=== PATIENT | male | born 1965 | race Caucasian/White ===

== ENCOUNTER 2016-10-20 08:34 | Inpatient (IN) | payer MEDICARE ==
[~2016-10-20] VITALS: Ht 152.4 cm; Wt 100.0 kg
[~2016-10-20 08:34] MED LIST: ACET325T45 PO; ASC250 PO; BACTDS PO; BEN25 PO; BICS PO; BISA-57 PO; CEPH-443 PO; COLC0.6T6 PO; LEVE-5 PO; LIDO700A6 TD; LITH300T5 PO; MAGN400O4 PO; METO-407 PO; OLAN7.5T5 PO; SULF1TAB31 PO; VALS160T20 PO
[2016-10-20 08:46] VITALS: Ht 152.4 cm; Wt 100.0 kg
[2016-10-20] MEDS ORDERED: ONDANSETRON 4 MG INJ IV STA (08:48)
[2016-10-20] MEDS ORDERED: SOD CHLORIDE 0.9% 1,000 ML IV STA (08:48)
[2016-10-20] MEDS ORDERED: LEVETIRACETAM IV 500 MG in DEXTROSE 5% 100 ML IVPB ONE (09:00)
[2016-10-20 09:19] LABS: BASOPHIL # 0.1 10^3/ul (0.0-0.1); BASOPHILS % 0.4 % (0.0-2.0); EOSINOPHILS # 0.4 10^3/ul (0.0-0.5); EOSINOPHILS % 3.2 % (0.0-7.0); HEMATOCRIT 44.3 % (42.0-52.0); LYMPHOCYTES # 1.2 10^3/ul (0.8-2.9); LYMPHOCYTES % 8.8 % (15.0-51.0); MEAN CORPUSCULAR HEMOGLOBIN 29.5 pg (29.0-33.0); MEAN CORPUSCULAR HGB CONC 33.8 g/dl (32.0-37.0); MEAN CORPUSCULAR VOLUME 87.4 fl (82.0-101.0); MONOCYTE # 0.4 10^3/ul (0.3-0.9); MONOCYTES % 3.2 % (0.0-11.0); NEUTROPHIL # 11.6 10^3/ul (1.6-7.5); NEUTROPHILS % 84.4 % (39.0-77.0); PLATELET COUNT 241 10^3/UL (140-440); RED BLOOD COUNT 5.07 10^6/ul (4.70-6.10); RED CELL DISTRIBUTION WIDTH 14.2 % (11.5-14.5); UNCORRECTED WBC 13.8 10^3/ul (4.8-10.8); WHITE BLOOD COUNT 13.8 10^3/ul (4.8-10.8)
[2016-10-20 09:31] LABS: ALBUMIN 4.4 g/dl (3.3-4.9)
[2016-10-20 09:32] LABS: CHLORIDE 107 mmol/L (97-110); POTASSIUM 4.7 mmol/L (3.5-5.1); SODIUM 145 mmol/L (135-144)
[2016-10-20 09:34] LABS: ANION GAP 21 (8-16); BILIRUBIN,INDIRECT 0.8 mg/dl (0-1.1); BILIRUBIN,TOTAL 0.8 mg/dl (0.2-1.3); CARBON DIOXIDE 22 mmol/L (21-31); CREATININE 1.53 mg/dl (0.61-1.24)
[2016-10-20 09:35] LABS: ALANINE AMINOTRANSFERASE 33 IU/L (13-69); ALBUMIN/GLOBULIN RATIO 1.46; ALKALINE PHOSPHATASE 81 IU/L (42-121); ASPARTATE AMINO TRANSFERASE 32 IU/L (15-46); BLOOD UREA NITROGEN 21 mg/dl (7-20); CALCIUM 9.8 mg/dl (8.4-10.2); CONDITION 1; GLUCOSE 107 mg/dl (70-220); TOTAL PROTEIN 7.4 g/dl (6.1-8.1)
--- NOTE | 2016-10-20 09:38 | RADRPT ---
PROCEDURE: XR Chest. CLINICAL INDICATION: Chest pain TECHNIQUE: Chest AP portable. COMPARISON: 08/23/2014 FINDINGS: Right-sided PAYROLL ACCOUNTANT shunt. The mediastinal structures are unremarkable. The heart is normal in size and configuration. The pu lmonary vascularity is normal. There are low lung volumes. There is mild bibasilar subsegmental at electasis. The pleural spaces are unremarkable. The axial skeleton is unremarkable. IMPRESSION: Low lung volumes Mild bibasilar subsegmental atelectasis RPTAT: HGDB .Izaiah Judd MD, MD Date Time Electronically viewed and signed by .Izaiah Judd MD, MD on 10/20/2016 09:38 .B/
[2016-10-20 09:50] LABS: TROPONIN-I < 0.012 ng/ml (0.00-0.12)
--- NOTE | 2016-10-20 10:00 | RADRPT ---
PROCEDURE: CT Brain without contrast. CLINICAL INDICATION: Altered mental status TECHNIQUE: Routine CT scan of the brain was performed on a high resolution multi detector scanner without intravenous contrast. One or more of the following dose reduction techniques were used: Auto mated exposure control; Adjustment of the mA and/or kV according to patient size; Use of iterative r econstruction technique. CTDI = 44, 45, 44 mGy. DLP = 720 mGy-cm. COMPARISON: CT angiogram of the intracranial circulation 01/15/2016 FINDINGS: Hemorrhage: No evidence of intracranial hemorrhage. Acute ischemic changes: No evidence of acute ischemic changes. Mass effect/Midline shift: None. Parenchymal volume: Within normal limits for age. Ventricular system: Concordant with parenchymal volume. Ventriculostomy catheter enters via a right frontal approach and terminates within the anterior right frontal horn. Ventricular caliber is uncha nged. Chronic changes: Mild left inferior frontal and insular encephalomalacia associated with left parase llar aneurysm clips. Small right cerebellar chronic infarct is unchanged. Extracranial soft tissues: Mild soft tissue swelling in the left parietal region may be post-traumat ic. Calvarium: No fractures. Postoperative changes from left pterional craniotomy. Paranasal sinuses: Visualized paranasal sinuses are clear. Mastoid air cells: Visualized mastoid air cells are clear. IMPRESSION: No acute intracranial abnormalities. Unchanged appearance of left inferior frontal, left sub insular, and right cerebellar chronic infarc ts / encephalomalacia. Right frontal ventriculostomy catheter with unchanged caliber of the ventricular system. Mild left parietal soft tissue swelling without underlying fractures. RPTAT: AADD .Ruel Kumar MD, MD Date Time Electronically viewed and signed by .Ruel Kumar MD, on 10/20/2016 10:00 .B/
[2016-10-20 10:38] LABS: INR 0.94; PROTIME 12.6 Sec (12.2-14.2)
[2016-10-20 10:43] LABS: ADD UMIC YES; URINE BILIRUBIN (Dip) NEGATIVE (NEGATIVE); URINE BLOOD (Dip) NEGATIVE (NEGATIVE); URINE COLOR LT. YELLOW (YELLOW); URINE GLUCOSE (Dip) NEGATIVE (NEGATIVE); URINE KETONES (Dip) NEGATIVE (NEGATIVE); URINE LEUKOCYTE ESTERASE (Dip) NEGATIVE (NEGATIVE); URINE NITRITE (Dip) NEGATIVE (NEGATIVE); URINE TOTAL PROTEIN (Dip) TRACE (NEGATIVE); URINE UROBILINOGEN (Dip) 0.2 E.U./dL (0.1-1.0)
[2016-10-20 11:06] LABS: URINE RBCS NONE SEEN /HPF (0)
--- NOTE | 2016-10-20 11:15 | ERA ---
ER Documentation Chief Complaint Date/Time DATE: 10/20/16 TIME: 11:09 Chief Complaint BROUGHT IN VIA EMS DUE TO SEIZURE AND FOUND SLEEPING IN FRONT YARD HPI 51-year-old man brought in by EMS after he was found confused laying on a strangers front lawn. EMS thought he may be alcohol intoxicated although he did not endorse this. Patient was confused and had slurred speech but no focal deficits. He denies fevers or chills, no chest pain or shortness of breath. HPI was limited although supplemented by reviewing past medical history and speaking to EMS in the ED. ROS All systems reviewed and are negative except as per history of present illness. Medications Home Meds Active Scripts Diphenhydramine Hcl* (Benadryl*) 25 Mg Cap, 25 MG PO QHS for INSOMNIA for 30 Days, #30 CAP 0 Refills Prov:DAQUAN PERRY PA-C 05/23/16 Bisacodyl* (Dulcolax*) 5 Mg Tabec, 5 MG PO DAILY Y for CONSTIPATION, #30 Prov:FRANCISCO RAMIREZ 11/04/14 Reported Medications Citric Acid/Sodium Citrate* (Bicitra* (PEDIATRIC)) 1 Meq/Ml Soln, 30 ML PO TID for 30 Days, BOTTLE 10/30/14 Olanzapine* (Olanzapine*) 7.5 Mg Tablet, 7.5 MG PO BID, TAB 10/30/14 Acetaminophen* (Acetaminophen*) 325 Mg Tablet, 650 MG PO Q4H Y for PAIN AND OR ELEVATED TEMP, TAB 10/30/14 Magnesium Hydroxide* (Milk Of Magnesia*) 400 Mg/5 Ml Oral.susp, 30 ML PO DAILY, ML 10/30/14 Metoprolol Tartrate* (Lopressor*) 100 Mg Tablet, 100 MG PO BID, TAB 10/30/14 [place] Carbonate* ([place] Carbonate*) 300 Mg Tablet, 300 MG PO BID, TAB 10/30/14 Lidocaine 5%* (Lidoderm 5%*) 5% - Patch Adh..patch, 1 PATCH TD DAILY, PATCH 10/30/14 Levetiracetam* (Keppra*) 500 Mg Tablet, 500 MG PO BID, TAB 10/30/14 Valsartan* (Diovan*) 160 Mg Tablet, 160 MG PO DAILY, TAB 10/30/14 Colchicine* (Colcrys*) 0.6 Mg Tablet, 0.6 MG PO DAILY, TAB 10/30/14 Ascorbic Acid (Vitamin C) 250 Mg Tab, 250 MG PO DAILY, TAB 10/30/14 Discontinued Scripts Cephalexin* (Keflex*) 500 Mg Capsule, 500 MG PO BID for 7 Days, CAP Prov:NADINE DUONG C 07/06/16 Sulfamethoxazole-Trimethoprim* (Bactrim* DS) 800-160 Mg Tab, 1 TAB PO BID for 7 Days, TAB Prov:NADINE DUONG C 07/06/16 Sulfamethoxazole-Trimethoprim (Bactrim DS Tablet) 800-160 Mg Tab, 1 TAB PO DAILY , #7 TAB Prov:ASHLEYFRANCISCO 11/04/14 Allergies Allergies: Coded Allergies: Tigecycline (Verified Allergy, Mild, swelling, 10/30/14) swollen face PMhx/Soc 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 and subarachnoid hemorrhage to the left frontal temporal lobe and subsequent encephalomalacia, seizures, history of stroke and cerebral artery aneurysm clips, recurrent UTI, hypertension History of Surgery: Yes (BRAIN VALVE PLACEMENT ) Anesthesia Reaction: No Hx Neurological Disorder: Yes Hx Respiratory Disorders: Yes (Asthma) Hx Cardiac Disorders: Yes (HTN) Hx Psychiatric Problems: Yes (Schizo, Psychosis) Hx Miscellaneous Medical Probl: No Hx Alcohol Use: Yes Hx Substance Use: No Hx Tobacco Use: No Smoking Status: Never smoker FmHx Family History: No diabetes Physical Exam Vitals Vital Signs Date Time Temp Pulse Resp B/P Pulse Ox O2 Delivery O2 Flow Rate FiO2 10/20/16 11:41 98.5 76 16 154/106 98 Room Air 10/20/16 08:46 98.5 77 16 144/95 95 Physical Exam GENERAL: Well-developed, well-nourished, confused, lethargic, appears postictal HEENT: Moist mucous membranes, pink conjunctiva, no cervical spine tenderness or step-off deformities, no goiter, no jaundice or icterus, extraocular movements intact without pain. No submandibular induration, and no pharyngeal erythema NEURO: Alert and oriented 1, positive slurred speech, cranial nerves II through XII intact bilaterally, pupils equal round reactive to light, no focal deficits or facial asymmetry, sensation intact distally Strength 5/5 in upper and lower extremities bilaterally CARDIAC: Regular rate and rhythm, no murmurs rubs or gallops LUNGS: Clear bilaterally no wheezing crackles or stridor ABDOMEN: Soft nontender, no guarding, no rigidity, no rebound, no psoas sign no obturator sign. Normoactive bowel sounds SKIN: Warm and dry to touch, no abrasions, contusions, or hematomas, no lacerations, no ecchymosis, no target lesions, and without ulcers EXTREMITIES: No clubbing cyanosis or edema, calves are bilaterally symmetrical, no Homans sign, no popliteal cord sign. Distal pulses equal and bilateral PSYCH: Normal affect without agitation or irritability Result Diagram: 10/20/16 0900 10/20/16 0900 Results 24 hrs Laboratory Tests Test 10/20/16 09:00 10/20/16 10:00 Alanine Aminotransferase (ALT/SGPT) 33IU/L Albumin 4.4g/dl Albumin/Globulin Ratio 1.46 Alkaline Phosphatase 81IU/L Anion Gap 21 Aspartate Amino Transf (AST/SGOT) 32IU/L Basophils # 0.110^3/ul Basophils % 0.4% Blood Morphology Comment Blood Urea Nitrogen 21mg/dl Calcium Level 9.8mg/dl Carbon Dioxide Level 22mmol/L Chloride Level 107mmol/L Creatinine 1.53mg/dl Direct Bilirubin 0.00mg/dl Eosinophils # 0.410^3/ul Eosinophils % 3.2% Globulin 3.00g/dl Glucose Level 107mg/dl Hematocrit 44.3% Hemoglobin 15.0g/dl INR International Normalized Ratio 0.94 Indirect Bilirubin 0.8mg/dl Lipase 49U/L Lymphocytes # 1.210^3/ul Lymphocytes % 8.8% Mean Corpuscular Hemoglobin 29.5pg Mean Corpuscular Hemoglobin Concent 33.8g/dl Mean Corpuscular Volume 87.4fl Mean Platelet Volume 11.0fl Monocytes # 0.410^3/ul Monocytes % 3.2% Neutrophils # 11.610^3/ul Neutrophils % 84.4% Nucleated Red Blood Cells # 0.010^3/ul Nucleated Red Blood Cells % 0.0/100WBC Platelet Count 83601^3/UL Potassium Level 4.7mmol/L Prothrombin Time 12.6Sec Prothrombin Time Ratio 1.0 Red Blood Count 5.0710^6/ul Red Cell Distribution Width 14.2% Sodium Level 145mmol/L Total Bilirubin 0.8mg/dl Total Protein 7.4g/dl Troponin I < 0.012ng/ml White Blood Count 13.810^3/ul Urine Bilirubin NEGATIVE Urine Clarity CLEAR Urine Color LT. YELLOW Urine Glucose NEGATIVE% Urine Hemoglobin NEGATIVE Urine Ketones NEGATIVE Urine Leukocyte Esterase NEGATIVE Urine Microscopic RBC NONE SEEN/HPF Urine Microscopic WBC 0-2/HPF Urine Nitrite NEGATIVE Urine Specific [place] 1.010 Urine Total Protein TRACE Urine Urobilinogen 0.2 E.U./dL Urine pH 5.5 Current Medications Medications (Trade) Dose Ordered Sig/Trena Route PRN Reason Start Time Stop Time Status Last Admin Dose Admin Sodium Chloride (NS) 1,000 ml @ 1,000 mls/hr Q1H STAT IV 10/20/16 08:48 10/20/16 09:47 DC 10/20/16 09:13 Ondansetron HCl 4 mg 4 mg ONCE STAT IV 10/20/16 08:48 10/20/16 08:52 DC Levetiracetam/ Dextrose (Keppra Iv/D5W) 105 ml @ 420 mls/hr ONCE ONCE IVPB 10/20/16 09:00 10/20/16 09:14 DC 10/20/16 09:24 Procedures/MDM IV line was established patient was placed on cardiac exercise physiologist rhythm strip revealed a sinus rhythm at about 80 bpm with upright P and T waves. Patient was afebrile. Blood sugar was checked and was normal. EKG performed, read by me: 76 bpm, normal sinus rhythm, normal axis, no acute ST segment changes, narrow QRS complex, with good R-wave progression in precordial leads. CT scan of the brain was performed that was negative for acute bleed mass or shift. There is chronic changes noted consistent with his history. GREASE MONKEY shunt appears patent. One AP view of the chest performed, read by me reveals no acute infiltrates, normal mediastinum, sharp costophrenic and cardiac borders, no air under the diaphragm. Otherwise unremarkable chest x-ray. CBC reveals a leukocytosis of 14, electrolytes revealed dehydration with a BUN/ creatinine of 21/1.5, liver function tests were normal, troponin was negative. Urine analysis was negative for infection. I reviewed patient's past medical history and it seems he was at one time prescribed Keppra for seizures although he denies using this medication for a few weeks at least. His mental status has slowly improved while here in the emergency department, presentation he was only alert to name although now he was able to provide more of a history and suspects he had a tonic-clonic seizure. Patient remains postictal and will be admitted to [facility] for continued medical management and possible neurology consultation. I administered 1 L normal saline intravenously, Zofran 4 mg IV, and Keppra 500 mg IV. Departure Diagnosis: Primary Impression: Acute encephalopathy Additional Impressions: Postictal state GREASE MONKEY (ventriculoperitoneal) shunt status Dehydration Condition: Fair ALMITA ORTIZ MD Oct 20, 2016 11:15
[2016-10-20] MEDS ORDERED: LORAZEPAM 2 MG INJ IM ONE (15:00)
[2016-10-20] MEDS ORDERED: LORAZEPAM 2 MG INJ IV ONE (15:30)
[2016-10-20] MEDS ORDERED: ACETAMINOPHEN 325 MG TAB PO PRN (16:00)
[2016-10-20] MEDS ORDERED: NACL 0.9% 3 ML SYG IV SCH (16:00)
[2016-10-20] MEDS ORDERED: DOCUSATE SODIUM 100 MG CAP PO PRN (16:00)
[2016-10-20] MEDS ORDERED: BISACODYL (EC) 5 MG TAB PO PRN (16:30)
[2016-10-20] MEDS ORDERED: [UNRECOGNIZED DRUG - REMARK] XX SCH (17:00)
[2016-10-20 17:35] LABS: CREATINE KINASE 949 IU/L (23-200)
[2016-10-20 17:48] LABS: CK-MB 9.21 ng/ml (0.0-2.4)
[2016-10-20 17:56] LABS: TROPONIN-I < 0.012 ng/ml (0.00-0.12)
--- NOTE | 2016-10-20 17:59 | HP ---
DATE OF ADMISSION: 10/20/2016 LENS COATING TECHNICIAN: Neurology. NOTATION: Information was obtained from the ER doctor and EMS. Patient is not able to provide me w ith any information secondary to altered mental status. HISTORY OF PRESENT ILLNESS: This is a 51-year-old gentleman with past medical history of seizure di sorder, gout, mood disorder, questionable schizophrenia, hypertension, alcohol abuse, who was found confused, lying on a stranger's front lawn. EMS thought he may be alcohol intoxicated, although he did not endorse this. Patient was confused and had slurred speech, but no focal deficit. Patient e asily arousable, although he falls right back to sleep. He denies having any chest pain, shortness of breath, although the HPI and review of systems is limited secondary to patient's altered mental s tatus and patient not being able to answer since he continues to fall asleep during the documentatio n and HPI. PAST MEDICAL HISTORY: As above per HPI. PAST SURGICAL HISTORY: As above per HPI. Upon arrival to emergency room, patient was treated with lorazepam, Keppra, normal saline, and Zofra n. At this time, the patient is easily arousable, , although he continues to fall back asleep. He was found to be mildly agitated and possibly going through withdrawal. Therefore, he was placed on b ilateral upper extremity restraints and seizure precautions. MEDICATIONS: 1. Tylenol. 2. Vitamin C. 3. Dulcolax. 4. Citric acid and sodium citrate. 5. Colchicine. 6. Benadryl. 7. Keppra. 8. Lidocaine patch. 9. [place]. 10. Magnesium hydroxide. 11. Lopressor. 12. Olanzapine. 13. Diovan. ALLERGIES: TIGECYCLINE. SOCIAL HISTORY: History of alcoholism. According to chart, he has never smoked. Drug use is unkno wn. REVIEW OF SYSTEMS: As above per HPI. Otherwise, 12 review of systems has not been able to be obtai sisi. PHYSICAL EXAMINATION: VITAL SIGNS: Temperature 98.5, pulse 68, respirations 16, blood pressure 178/106, oxygen saturation 100% in room air. GENERAL APPEARANCE: Patient is lying in bed comfortably, although he is arousable. Patient is able to follow simple commands only and then falls right back to sleep. EYES AND ENT: Conjunctivae and lids are normal. Pupils are normal. Extraocular normal. Hearing g rossly normal. Pupils are normal. Oral mucosa dry. NECK: Supple. Trachea is midline. No lymphadenopathy. RESPIRATORY: Effort is normal. Clear to auscultate bilaterally. CARDIOVASCULAR: Normal S1, S2. Regular rhythm and rate. No murmur, no bruits, no edema. Peripher al pulses, radial pulses palpable. Cap refill is normal. CHEST: Normal expansion of thorax during inspiration. GASTROINTESTINAL: Abdomen is soft, nontender, not distended. Bowel sounds present. No guarding, n o rebound. GENITOURINARY: Deferred. MUSCULOSKELETAL: Upper and lower extremities within normal limits. Full range of motion. NEUROLOGIC: Not obtainable at this time, although he is easily arousable and awake by sternal rub. LABORATORY WORK AND IMAGING: WBC 13.8, hemoglobin 15, hematocrit 44.3, platelets 241. Sodium 145, potassium 4.7, chloride 107, bicarbonate 22, BUN 21, creatinine 1.53, glucose 107, calcium 9.8. LFT s all within normal limits. ASSESSMENT AND PLAN: 1. Altered mental status. This is likely postictal versus alcohol intoxication. We will follow up alcohol level, place the patient on banana bag, Ativan, and Librium, and treat accordingly. 2. History of seizure disorder. Continue Keppra. Neurology has been consulted. We will follow up their recommendation. 3. History of mood disorder. Continue home medication. 4. Essential hypertension. Restart patient's home medication. 5. Acute renal insufficiency, likely secondary to dehydration. The patient has been started on IV fluid. Follow renal panel in a.m. 6. Leukocytosis, likely reactive, although at this time, we will start the patient on prophylactic Rocephin. Follow CBC in a.m. 7. For deep vein thrombosis prophylaxis, on sequential compression devices. 8. For gastrointestinal prophylaxis, the patient has been started on Pepcid. 9. We will continue to monitor patient closely. Further recommendations, management, and treatment as per clinical course. Dictated By: MILE SARAH/DONN Conf#: [id number] DID#: [id number]
[2016-10-20] MEDS: CEFTRIAXONE 1 GM/50 ML (PMX) 50 ML IVPB SCH (19:13)
[2016-10-20 21:01] VITALS: TEMP 98.7
[2016-10-20] MEDS: FAMOTIDINE 20 MG TAB PO SCH (21:55)
[2016-10-20] MEDS: DIPHENHYDRAMINE 25 MG CAP PO SCH (21:55)
[2016-10-20] MEDS: CITRIC ACID/NA CITRATE 30 ML CUP PO SCH (21:55)
[2016-10-20] MEDS: METOPROLOL 50 MG TAB PO SCH (21:56)
[2016-10-20] MEDS: LORAZEPAM 2 MG INJ IV PRN (22:04)
[2016-10-20 22:09] VITALS: BP 152/93; PULSE 72; RESP 18
[2016-10-20 23:42] LABS: CREATINE KINASE 855 IU/L (23-200)
[2016-10-20] MEDS: LEVETIRACETAM IV 1,000 MG in SOD CHLORIDE 0.9% 100 ML IVPB SCH (23:45)
[2016-10-20] MEDS: 1/2 NS + KCL 20 MEQ 1,000 ML IV SCH (23:46)
[2016-10-20] MEDS: LITHIUM CARBONATE 300 MG CAP PO SCH (23:46)
[2016-10-20] MEDS: OLANZAPINE 2.5 MG TAB PO SCH (23:46)
[2016-10-20 23:59] LABS: CK-MB 7.64 ng/ml (0.0-2.4); TROPONIN-I < 0.012 ng/ml (0.00-0.12)
[2016-10-21] MEDS: LORAZEPAM 2 MG INJ IV PRN ×3 (03:26→18:31)
[2016-10-21] MEDS: 1/2 NS + KCL 20 MEQ 1,000 ML IV SCH ×2 (06:22→15:53)
[2016-10-21 07:04] LABS: BASOPHIL # 0.1 10^3/ul (0.0-0.1); BASOPHILS % 0.6 % (0.0-2.0); EOSINOPHILS % 10.8 % (0.0-7.0); HEMATOCRIT 42.5 % (42.0-52.0); HEMOGLOBIN 14.1 g/dl (14.0-18.0); LYMPHOCYTES # 1.8 10^3/ul (0.8-2.9); LYMPHOCYTES % 19.3 % (15.0-51.0); MEAN CORPUSCULAR HEMOGLOBIN 29.1 pg (29.0-33.0); MEAN CORPUSCULAR HGB CONC 33.3 g/dl (32.0-37.0); MEAN CORPUSCULAR VOLUME 87.4 fl (82.0-101.0); MONOCYTE # 0.6 10^3/ul (0.3-0.9); MONOCYTES % 6.4 % (0.0-11.0); NEUTROPHIL # 5.8 10^3/ul (1.6-7.5); NEUTROPHILS % 62.9 % (39.0-77.0); PLATELET COUNT 220 10^3/UL (140-440); RED BLOOD COUNT 4.86 10^6/ul (4.70-6.10); RED CELL DISTRIBUTION WIDTH 14.5 % (11.5-14.5); UNCORRECTED WBC 9.3 10^3/ul (4.8-10.8); WHITE BLOOD COUNT 9.3 10^3/ul (4.8-10.8)
[2016-10-21 07:06] LABS: ALBUMIN 4.2 g/dl (3.3-4.9)
[2016-10-21 07:08] LABS: CREATININE 1.16 mg/dl (0.61-1.24)
[2016-10-21 07:09] LABS: ALBUMIN/GLOBULIN RATIO 1.68; BILIRUBIN,INDIRECT 0.7 mg/dl (0-1.1); BILIRUBIN,TOTAL 0.7 mg/dl (0.2-1.3); CALCIUM 9.5 mg/dl (8.4-10.2); TOTAL PROTEIN 6.7 g/dl (6.1-8.1)
[2016-10-21 07:10] LABS: MAGNESIUM 1.8 mg/dl (1.7-2.5)
[2016-10-21 07:14] LABS: CONDITION 1
[2016-10-21 07:40] LABS: THYROID STIMULATING HORMONE 2.99 MIU/L (0.465-4.680)
[2016-10-21 08:02] VITALS: BP 144/101; RESP 20
[2016-10-21] MEDS: COLCHICINE 0.6 MG TAB PO SCH (08:45)
[2016-10-21] MEDS: CITRIC ACID/NA CITRATE 30 ML CUP PO SCH ×3 (08:45→20:01)
[2016-10-21] MEDS: ASCORBIC ACID 250 MG TAB PO SCH (08:46)
[2016-10-21] MEDS: VALSARTAN 160 MG TAB PO SCH (08:46)
[2016-10-21] MEDS: FAMOTIDINE 20 MG TAB PO SCH ×2 (08:46→20:02)
[2016-10-21] MEDS: METOPROLOL 50 MG TAB PO SCH ×2 (08:46→22:18)
[2016-10-21] MEDS: OLANZAPINE 2.5 MG TAB PO SCH ×2 (08:46→20:02)
[2016-10-21] MEDS: LITHIUM CARBONATE 300 MG CAP PO SCH ×2 (08:47→20:01)
[2016-10-21 08:52] VITALS: BP 158/97; PULSE 66
[2016-10-21] MEDS: LIDOCAINE 5% PATCH TD SCH (08:52)
[2016-10-21] MEDS: LEVETIRACETAM IV 1,000 MG in SOD CHLORIDE 0.9% 100 ML IVPB SCH ×2 (09:17→22:17)
[2016-10-21] MEDS: MULTIVITAMINS 10 ML, THIAMINE 100 MG, FOLIC ACID 1 MG in SOD CHLORIDE 0.9% 1,000 ML IVPB SCH (09:53)
--- NOTE | 2016-10-21 11:55 | PN ---
Date/Time of Note Date/Time of Note DATE: 10/21/16 TIME: 11:51 Assessment/Plan VTE Prophylaxis VTE Prophylaxis Intervention: SCD's Lines/Catheters IV [facility]ter [facility]from [facility] [place] Lock Urinary Cath still in place: No Assessment/Plan Chief Complaint/Hosp Course ASSESSMENT AND PLAN: 1. Altered mental status. Improving , this was likely postictal versus alcohol intoxication. Continue banana bag, Ativan, and Librium, 2. History of seizure disorder. Continue Keppra. Neurology has been consulted. We will follow up their recommendation. 3. History of mood disorder. Continue home medication. 4. Essential hypertension. Continue medical management 5. Acute renal insufficiency, improved IV fluid. Follow renal panel in a.m. 6. Leukocytosis, likely reactive, Follow CBC in a.m. 7. For deep vein thrombosis prophylaxis, on sequential compression devices. 8. For gastrointestinal prophylaxis, the patient has been started on Pepcid. We will continue to monitor patient closely. Further recommendations, management, and treatment as per clinical course. Problems: Subjective 24 Hr Interval Summary Free Text/Dictation Patient denies of any chest pain or shortness of breath He is more awake and alert and able to follow simple command Exam/Review of Systems Vital Signs Vitals Vital Signs Date Time Temp Pulse Resp B/P Pulse Ox O2 Delivery O2 Flow Rate FiO2 10/21/16 08:52 66 158/97 10/21/16 08:02 97.6 20 99 10/20/16 21:01 Room Air Intake and Output 10/20/16 10/20/16 10/21/16 15:00 23:00 07:00 Intake Total 50 ml 1110 ml Balance 50 ml 1110 ml Exam General: The patient is well-developed, Not in acute distress. HEENT: Atraumatic, normocephalic. The pupils are equal and round . Neck: Supple with full range of motion. Chest: Normal expansion of the thorax during inspiration Lungs: Clear to auscultation bilaterally Heart: Normal S1-S2, Regular rhythm and rate. Abdomen: Soft , nontender, nondistended , bowel sounds are present. Extremities: Normal to inspection, no edema no cyanosis Neurologic: ,The patient is awake, alert and oriented to self. Results Result Diagram: 10/21/16 0530 10/21/16 0530 Results 24 hrs Laboratory Tests Test 10/20/16 17:00 10/20/16 23:00 10/21/16 05:30 Creatine Kinase 949 H 855 H Creatine Kinase Index 1.0 0.9 Creatinine Kinase MB (Mass) 9.21 H 7.64 H Ethyl Alcohol Level < 10.0 Troponin I < 0.012 < 0.012 Alanine Aminotransferase (ALT/SGPT) 33 Albumin 4.2 Albumin/Globulin Ratio 1.68 Alkaline Phosphatase 82 Anion Gap 19 H Aspartate Amino Transf (AST/SGOT) 31 Basophils # 0.1 Basophils % 0.6 Blood Morphology Comment Blood Urea Nitrogen 17 Calcium Level 9.5 Carbon Dioxide Level 23 Chloride Level 108 Creatinine 1.16 Direct Bilirubin 0.00 Eosinophils # 1.0 H Eosinophils % 10.8 H Globulin 2.50 Glucose Level 78 Hematocrit 42.5 Hemoglobin 14.1 Indirect Bilirubin 0.7 Lymphocytes # 1.8 Lymphocytes % 19.3 Magnesium Level 1.8 Mean Corpuscular Hemoglobin 29.1 Mean Corpuscular Hemoglobin Concent 33.3 Mean Corpuscular Volume 87.4 Mean Platelet Volume 11.0 H Monocytes # 0.6 Monocytes % 6.4 Neutrophils # 5.8 Neutrophils % 62.9 Nucleated Red Blood Cells # 0.0 Nucleated Red Blood Cells % 0.0 Platelet Count 220 Potassium Level 5.0 Red Blood Count 4.86 Red Cell Distribution Width 14.5 Sodium Level 145 H Thyroid Stimulating Hormone (TSH) 2.990 Total Bilirubin 0.7 Total Protein 6.7 White Blood Count 9.3 # Medications Medications Current Medications Multivitamins 10 ml/Thiamine HCl 100 mg/Folic Acid 1 mg/Sodium Chloride 1,011.2 ml @ 100 mls/ hr DAILY@09 IVPB Last administered on 10/21/16 09:53; Admin Dose 100 MLS/HR; Start 10/21/16 at 09:00 Potassium Chloride/Sodium Chloride (1/2 NS + KCl 20 Meq) 1,000 ml @ 100 mls/hr Q10H IV Last administered on 10/21/16 06:22; Admin Dose 100 MLS/HR; Start at 20:00 Lorazepam (Ativan) 0.5 mg Q4H PRN IV ANXIETY Last administered on 10/21/16 03: 26; Admin Dose 0.5 MG; Start 10/20/16 at 16:00 Acetaminophen (Tylenol Tab) 650 mg Q6H PRN PO PAIN LEVEL 1-3 OR FEVER; Start at 16:00 Docusate Sodium (Colace) 100 mg Q12H PRN PO CONSTIPATION; Start 10/20/16 at 16: 00 Famotidine (Pepcid) 20 mg Q12 PO Last administered on 10/21/16 08:46; Admin Dose 20 MG; Start 10/20/16 at 21:00 Ascorbic Acid (Vitamin C) 250 mg DAILY PO Last administered on 10/21/16 08:46 ; Admin Dose 250 MG; Start 10/21/16 at 09:00 Bisacodyl (Dulcolax) 5 mg DAILY PRN PO CONSTIPATION; Start 10/20/16 at 16:30 Citric Acid/ Sodium Citrate (Bicitra) 30 ml TID PO Last administered on 08:45; Admin Dose 30 ML; Start 10/20/16 at 21:00 Colchicine (Colchicine) 0.6 mg DAILY PO Last administered on 10/21/16 08:45; Admin Dose 0.6 MG; Start 10/21/16 at 09:00 Diphenhydramine HCl (Benadryl) 25 mg QHS PO Last administered on 10/20/16 21: 55; Admin Dose 25 MG; Start 10/20/16 at 21:00 Lidocaine (Lidoderm) 1 patch DAILY TD Last administered on 10/21/16 08:52; Admin Dose 1 PATCH; Start 10/21/16 at 09:00 [place] Carbonate (Z[place] Carbonate) 300 mg BID PO Last administered on 08:47; Admin Dose 300 MG; Start 10/20/16 at 21:00 Metoprolol Tartrate (Lopressor) 50 mg BID PO Last administered on 10/21/16 08: 46; Admin Dose 50 MG; Start 10/20/16 at 21:00 Valsartan (Diovan) 160 mg DAILY PO Last administered on 10/21/16 08:46; Admin Dose 160 MG; Start 10/21/16 at 09:00 Olanzapine (Zyprexa) 7.5 mg BID PO Last administered on 10/21/16 08:46; Admin Dose 7.5 MG; Start 10/20/16 at 21:00 Miscellaneous Information 1 ea NOTE XX ; Start 10/20/16 at 17:00 Chlordiazepoxide 50 mg 50 mg TID PO ; Start 10/21/16 at 21:00 Levetiracetam 1000 mg/Sodium Chloride 110 ml @ 440 mls/hr Q12 IVPB Last administered on 10/21/16 09:17; Admin Dose 440 MLS/HR; Start 10/20/16 at 21:00 Ceftriaxone Sodium (Rocephin) 50 ml @ 100 mls/hr Q24H IVPB Last administered on 10/20/16 19:13; Admin Dose 100 MLS/HR; Start 10/20/16 at 17:30; Stop at 17:29 MILE BELLO MD Oct 21, 2016 11:55
[2016-10-21] MEDS ORDERED: LORAZEPAM 2 MG INJ IV ONE (13:30)
--- NOTE | 2016-10-21 16:31 | CONS ---
Date/Time of Note Date/Time of Note DATE: 10/21/16 TIME: 16:24 Assessment/Plan Assessment/Plan Chief Complaint/Hosp Course 51 year old M hx of prior old strokes, alcohol abuse with seizures presenting with confusion slurred speech in setting of intoxication admitted for further management. -continue on home dose Keppra and psych meds -Librium taper, prn ativan with CIWA protocol seizure precautions -continue current management -SW would benefit from admission to rehab Problems: Consultation Date/Type/Reason Admit Date/Time Oct 21, 2016 at 12:29 Date of Consultation: Oct 21, 2016 Type of Consultation: Neurology Reason for Consultation alcohol abuse seizures Referring Provider: MILE BELLO MD Hx of Present Illness 51 year old male with history of seizure disorder, gout, htn, alcohol abuse found confused lying on strangers lawn, on admission intoxicated with confusion and slurred speech. Head CT shows left inferior frontal, subinsular right cerebellar chronic infarcts, prior right frontal catheter placement. He reportedly has hx of seizures, currently on Keppra 1000 mg q12h. Librium initiated 50 mg TID with prn ativan and banana bag. He remains confused and agitated. Social History Smoking Status: Unknown if ever smoked Exam/Review of Systems Vital Signs Vitals Vital Signs Date Time Temp Pulse Resp B/P Pulse Ox O2 Delivery O2 Flow Rate FiO2 10/21/16 08:52 66 158/97 10/21/16 08:02 97.6 20 99 10/20/16 21:01 Room Air Intake and Output 10/20/16 10/20/16 10/21/16 15:00 23:00 07:00 Intake Total 50 ml 1110 ml Balance 50 ml 1110 ml Exam awake and alert disheveled appearance oriented to self and hospital not to date poor insight and judgement agitated attempting to climb out of bed CN: YAO no nystagmus no facial asymmetry tongue midline Motor intact strength throughout arms and legs Tremor in bilateral UE from withdrawal sx Coordination no ataxia Sensory intact throughout Results Result Diagram: 10/21/16 0530 10/21/16 0530 Results 24 hrs Laboratory Tests Test 10/20/16 17:00 10/20/16 23:00 10/21/16 05:30 Creatine Kinase 949 H 855 H Creatine Kinase Index 1.0 0.9 Creatinine Kinase MB (Mass) 9.21 H 7.64 H Ethyl Alcohol Level < 10.0 Troponin I < 0.012 < 0.012 Alanine Aminotransferase (ALT/SGPT) 33 Albumin 4.2 Albumin/Globulin Ratio 1.68 Alkaline Phosphatase 82 Anion Gap 19 H Aspartate Amino Transf (AST/SGOT) 31 Basophils # 0.1 Basophils % 0.6 Blood Morphology Comment Blood Urea Nitrogen 17 Calcium Level 9.5 Carbon Dioxide Level 23 Chloride Level 108 Creatinine 1.16 Direct Bilirubin 0.00 Eosinophils # 1.0 H Eosinophils % 10.8 H Globulin 2.50 Glucose Level 78 Hematocrit 42.5 Hemoglobin 14.1 Indirect Bilirubin 0.7 Lymphocytes # 1.8 Lymphocytes % 19.3 Magnesium Level 1.8 Mean Corpuscular Hemoglobin 29.1 Mean Corpuscular Hemoglobin Concent 33.3 Mean Corpuscular Volume 87.4 Mean Platelet Volume 11.0 H Monocytes # 0.6 Monocytes % 6.4 Neutrophils # 5.8 Neutrophils % 62.9 Nucleated Red Blood Cells # 0.0 Nucleated Red Blood Cells % 0.0 Platelet Count 220 Potassium Level 5.0 Red Blood Count 4.86 Red Cell Distribution Width 14.5 Sodium Level 145 H Thyroid Stimulating Hormone (TSH) 2.990 Total Bilirubin 0.7 Total Protein 6.7 White Blood Count 9.3 # Medications Medications Current Medications Multivitamins 10 ml/Thiamine HCl 100 mg/Folic Acid 1 mg/Sodium Chloride 1,011.2 ml @ 100 mls/ hr DAILY@09 IVPB Last administered on 10/21/16 09:53; Admin Dose 100 MLS/HR; Start 10/21/16 at 09:00 Potassium Chloride/Sodium Chloride (1/2 NS + KCl 20 Meq) 1,000 ml @ 100 mls/hr Q10H IV Last administered on 10/21/16 06:22; Admin Dose 100 MLS/HR; Start at 20:00 Acetaminophen (Tylenol Tab) 650 mg Q6H PRN PO PAIN LEVEL 1-3 OR FEVER; Start at 16:00 Docusate Sodium (Colace) 100 mg Q12H PRN PO CONSTIPATION; Start 10/20/16 at 16: 00 Famotidine (Pepcid) 20 mg Q12 PO Last administered on 10/21/16 08:46; Admin Dose 20 MG; Start 10/20/16 at 21:00 Ascorbic Acid (Vitamin C) 250 mg DAILY PO Last administered on 10/21/16 08:46 ; Admin Dose 250 MG; Start 10/21/16 at 09:00 Bisacodyl (Dulcolax) 5 mg DAILY PRN PO CONSTIPATION; Start 10/20/16 at 16:30 Citric Acid/ Sodium Citrate (Bicitra) 30 ml TID PO Last administered on 14:04; Admin Dose 30 ML; Start 10/20/16 at 21:00 Colchicine (Colchicine) 0.6 mg DAILY PO Last administered on 10/21/16 08:45; Admin Dose 0.6 MG; Start 10/21/16 at 09:00 Diphenhydramine HCl (Benadryl) 25 mg QHS PO Last administered on 10/20/16 21: 55; Admin Dose 25 MG; Start 10/20/16 at 21:00 Lidocaine (Lidoderm) 1 patch DAILY TD Last administered on 10/21/16 08:52; Admin Dose 1 PATCH; Start 10/21/16 at 09:00 [place] Carbonate ([place] Carbonate) 300 mg BID PO Last administered on 08:47; Admin Dose 300 MG; Start 10/20/16 at 21:00 Metoprolol Tartrate (Lopressor) 50 mg BID PO Last administered on 10/21/16 08: 46; Admin Dose 50 MG; Start 10/20/16 at 21:00 Valsartan (Diovan) 160 mg DAILY PO Last administered on 10/21/16 08:46; Admin Dose 160 MG; Start 10/21/16 at 09:00 Olanzapine (Zyprexa) 7.5 mg BID PO Last administered on 10/21/16 08:46; Admin Dose 7.5 MG; Start 10/20/16 at 21:00 Miscellaneous Information 1 ea NOTE XX ; Start 10/20/16 at 17:00 Chlordiazepoxide 50 mg 50 mg TID PO ; Start 10/21/16 at 21:00 Levetiracetam 1000 mg/Sodium Chloride 110 ml @ 440 mls/hr Q12 IVPB Last administered on 10/21/16 09:17; Admin Dose 440 MLS/HR; Start 10/20/16 at 21:00 Ceftriaxone Sodium (Rocephin) 50 ml @ 100 mls/hr Q24H IVPB Last administered on 10/20/16t 19:13; Admin Dose 100 MLS/HR; Start 10/20/16 at 17:30; Stop at 17:29 Lorazepam (Ativan) 1 mg Q4H PRN IV ANXIETY; Start 10/21/16 at 13:30 KEERTHI YANEZ MD Oct 21, 2016 16:31
[2016-10-21] MEDS: CEFTRIAXONE 1 GM/50 ML (PMX) 50 ML IVPB SCH (17:24)
[2016-10-21] MEDS: DIPHENHYDRAMINE 25 MG CAP PO SCH (20:02)
[2016-10-21] MEDS: CHLORDIAZEPOXIDE 25 MG CAP PO SCH (22:18)
[2016-10-22] MEDS: 1/2 NS + KCL 20 MEQ 1,000 ML IV SCH ×3 (02:59→22:00)
[2016-10-22 05:57] LABS: BASOPHILS % 0.5 % (0.0-2.0); EOSINOPHILS # 0.9 10^3/ul (0.0-0.5); HEMATOCRIT 40.4 % (42.0-52.0); HEMOGLOBIN 13.7 g/dl (14.0-18.0); LYMPHOCYTES # 1.8 10^3/ul (0.8-2.9); LYMPHOCYTES % 20.9 % (15.0-51.0); MEAN CORPUSCULAR HEMOGLOBIN 29.5 pg (29.0-33.0); MEAN CORPUSCULAR HGB CONC 33.9 g/dl (32.0-37.0); MEAN CORPUSCULAR VOLUME 87.1 fl (82.0-101.0); MEAN PLATELET VOLUME 11.1 fl (7.4-10.4); MONOCYTE # 0.6 10^3/ul (0.3-0.9); NEUTROPHIL # 5.3 10^3/ul (1.6-7.5); NEUTROPHILS % 61.6 % (39.0-77.0); PLATELET COUNT 210 10^3/UL (140-440); RED BLOOD COUNT 4.64 10^6/ul (4.70-6.10); RED CELL DISTRIBUTION WIDTH 14.4 % (11.5-14.5); UNCORRECTED WBC 8.6 10^3/ul (4.8-10.8); WHITE BLOOD COUNT 8.6 10^3/ul (4.8-10.8)
[2016-10-22 06:12] LABS: CREATININE 1.14 mg/dl (0.61-1.24)
[2016-10-22 06:20] LABS: CONDITION 1
[2016-10-22] MEDS: CITRIC ACID/NA CITRATE 30 ML CUP PO SCH ×3 (08:10→21:54)
[2016-10-22] MEDS: LEVETIRACETAM IV 1,000 MG in SOD CHLORIDE 0.9% 100 ML IVPB SCH ×2 (08:10→21:53)
[2016-10-22] MEDS: LIDOCAINE 5% PATCH TD SCH (08:10)
[2016-10-22] MEDS: CHLORDIAZEPOXIDE 25 MG CAP PO SCH ×3 (08:10→21:54)
[2016-10-22] MEDS: COLCHICINE 0.6 MG TAB PO SCH (08:10)
[2016-10-22] MEDS: ASCORBIC ACID 250 MG TAB PO SCH (08:11)
[2016-10-22] MEDS: FAMOTIDINE 20 MG TAB PO SCH ×2 (08:11→21:53)
[2016-10-22] MEDS: LITHIUM CARBONATE 300 MG CAP PO SCH ×2 (08:11→21:54)
[2016-10-22] MEDS: OLANZAPINE 2.5 MG TAB PO SCH ×2 (08:11→21:53)
[2016-10-22] MEDS: METOPROLOL 50 MG TAB PO SCH ×2 (08:16→21:54)
[2016-10-22] MEDS: VALSARTAN 160 MG TAB PO SCH (08:16)
[2016-10-22 08:39] VITALS: BP 174/111; RESP 20
[2016-10-22] MEDS ORDERED: hydrALAzine 20 MG INJ IV PRN (10:00)
[2016-10-22 10:09] VITALS: BP 173/111
[2016-10-22] MEDS: MULTIVITAMINS 10 ML, THIAMINE 100 MG, FOLIC ACID 1 MG in SOD CHLORIDE 0.9% 1,000 ML IVPB SCH (10:33)
[2016-10-22] MEDS ORDERED: AMLODIPINE 10 MG TAB PO ONE (12:00)
[2016-10-22 12:20] VITALS: BP 188/113; PULSE 80
[2016-10-22] MEDS: LORAZEPAM 2 MG INJ IV PRN (13:07)
[2016-10-22 13:12] VITALS: BP 170/103; PULSE 88
[2016-10-22 14:28] VITALS: BP 152/101; PULSE 94
--- NOTE | 2016-10-22 15:52 | PN ---
Date/Time of Note Date/Time of Note DATE: 10/22/16 TIME: 15:49 Assessment/Plan VTE Prophylaxis VTE Prophylaxis Intervention: SCD's Lines/Catheters [facility] Type (from [facility]): Peripheral IV Urinary Cath still in place: No Assessment/Plan Chief Complaint/Hosp Course Assessment and plan 1. Altered mental status. Suspect postictal versus alcohol intoxication. Continue on Librium. Continue with IV hydration. Neurologist following 2. History of seizure. Continue on Keppra 3. History of medical disorder. Continue on lithium 4. Essential hypertension. Continue antihypertensives and adjust as needed 5. Acute kidney injury. Improved at this time. We'll monitor 6. Rhabdomyolysis. Improving at present per continue IV hydration 7. Suspect history of alcohol abuse. toll test worker to follow. Disposition and plan: Still noted to be confused. Discussed with family. toll test worker to follow. May need some type of assisted living. We'll follow-up Discussed plan of care with Dr. Dunbar Problems: Subjective 24 Hr Interval Summary Free Text/Dictation Still noted with some encephalopathy. Not oriented to time and place. Exam/Review of Systems Vital Signs Vitals Vital Signs Date Time Temp Pulse Resp B/P Pulse Ox O2 Delivery O2 Flow Rate FiO2 10/22/16 14:28 94 152/101 10/22/16 08:39 97.6 20 99 10/20/16 21:01 Room Air Intake and Output 10/21/16 10/21/16 10/22/16 14:59 22:59 06:59 Intake Total 1271.2 ml 410 ml Balance 1271.2 ml 410 ml Exam General: No acute signs or symptoms of distress Eyes: pupils equal round, Anicteric sclera Neck: Supple nontender, no JVD Cardiac: S1, S2 auscultated, regular rhythm and rate Pulmonary: No coarse rhonchi or breathing auscultated GI: Abdomen soft nontender nondistended, bowel sounds active Extremities: No edema bilateral lower extremitie Skin: Clean dry and intact Neurologic: confused Results Result Diagram: 10/22/16 0455 10/22/16 0455 Results 24 hrs Laboratory Tests Test 10/22/16 04:55 10/22/16 05:30 Anion Gap 15 Basophils # 0.0 Basophils % 0.5 Blood Morphology Comment Blood Urea Nitrogen 16 Calcium Level 9.0 Carbon Dioxide Level 25 Chloride Level 110 Creatinine 1.14 Eosinophils # 0.9 H Eosinophils % 10.0 H Glucose Level 74 Hematocrit 40.4 L Hemoglobin 13.7 L Lymphocytes # 1.8 Lymphocytes % 20.9 Magnesium Level 2.0 Mean Corpuscular Hemoglobin 29.5 Mean Corpuscular Hemoglobin Concent 33.9 Mean Corpuscular Volume 87.1 Mean Platelet Volume 11.1 H Monocytes # 0.6 Monocytes % 7.0 Neutrophils # 5.3 Neutrophils % 61.6 Nucleated Red Blood Cells # 0.0 Nucleated Red Blood Cells % 0.0 Platelet Count 210 Potassium Level 4.0 Red Blood Count 4.64 L Red Cell Distribution Width 14.4 Sodium Level 146 H White Blood Count 8.6 Creatine Kinase 495 #H Medications Medications Current Medications Multivitamins 10 ml/Thiamine HCl 100 mg/Folic Acid 1 mg/Sodium Chloride 1,011.2 ml @ 100 mls/ hr DAILY@09 IVPB Last administered on 10/22/16 10:33; Admin Dose 100 MLS/HR; Start 10/21/16 at 09:00 Potassium Chloride/Sodium Chloride (/2 NS + KCl 20 Meq) 1,000 ml @ 100 mls/hr Q10H IV Last administered on 10/22/16 02:59; Admin Dose 100 MLS/HR; Start at 20:00 Acetaminophen (Tylenol Tab) 650 mg Q6H PRN PO PAIN LEVEL 1-3 OR FEVER; Start at 16:00 Docusate Sodium (Colace) 100 mg Q12H PRN PO CONSTIPATION; Start 10/20/16 at 16: 00 Famotidine (Pepcid) 20 mg Q12 PO Last administered on 10/22/16 08:11; Admin Dose 20 MG; Start 10/20/16 at 21:00 Ascorbic Acid (Vitamin C) 250 mg DAILY PO Last administered on 10/22/16 08:11 ; Admin Dose 250 MG; Start 10/21/16 at 09:00 Bisacodyl (Dulcolax) 5 mg DAILY PRN PO CONSTIPATION; Start 10/20/16 at 16:30 Citric Acid/ Sodium Citrate (Bicitra) 30 ml TID PO Last administered on 12:16; Admin Dose 30 ML; Start 10/20/16 at 21:00 Colchicine (Colchicine) 0.6 mg DAILY PO Last administered on 10/22/16 08:10; Admin Dose 0.6 MG; Start 10/21/16 at 09:00 Diphenhydramine HCl (Benadryl) 25 mg QHS PO Last administered on 10/21/16 20: 02; Admin Dose 25 MG; Start 10/20/16 at 21:00 Lidocaine (Lidoderm) 1 patch DAILY TD Last administered on 10/22/16 08:10; Admin Dose 1 PATCH; Start 10/21/16 at 09:00 [place] Carbonate ([place] Carbonate) 300 mg BID PO Last administered on 08:11; Admin Dose 300 MG; Start 10/20/16 at 21:00 Metoprolol Tartrate (Lopressor) 50 mg BID PO Last administered on 10/22/16 08: 16; Admin Dose 50 MG; Start 10/20/16 at 21:00 Valsartan (Diovan) 160 mg DAILY PO Last administered on 10/22/16 08:16; Admin Dose 160 MG; Start 10/21/16 at 09:00 Olanzapine (Zyprexa) 7.5 mg BID PO Last administered on 10/22/16 08:11; Admin Dose 7.5 MG; Start 10/20/16 at 21:00 Miscellaneous Information 1 ea NOTE XX ; Start 10/20/16 at 17:00 Chlordiazepoxide 50 mg 50 mg TID PO Last administered on 10/22/16 12:17; Admin Dose 50 MG; Start 10/21/16 at 21:00 Levetiracetam 1000 mg/Sodium Chloride 110 ml @ 440 mls/hr Q12 IVPB Last administered on 10/22/16 08:10; Admin Dose 440 MLS/HR; Start 10/20/16 at 21:00 Ceftriaxone Sodium (Rocephin) 50 ml @ 100 mls/hr Q24H IVPB Last administered on 10/21/16 17:24; Admin Dose 100 MLS/HR; Start 10/20/16 at 17:30; Stop at 17:29 Lorazepam (Ativan) 1 mg Q4H PRN IV ANXIETY Last administered on 10/22/16 13:07 ; Admin Dose 1 MG; Start 10/21/16 at 13:30 Hydralazine HCl (Apresoline) 10 mg Q6H PRN IV ELEVATED BLOOD PRESSURE Last administered on 10/22/16 10:09; Admin Dose 10 MG; Start 10/22/16 at 10:00 Amlodipine Besylate (Norvasc) 5 mg BID PO ; Start 10/23/16 at 09:00 Clonidine (Catapres) 0.1 mg Q4H PRN PO sbp>160 Last administered on 10/22/16 13:11; Admin Dose 0.1 MG; Start 10/22/16 at 12:00 FRANCISCO RAMIREZ Oct 22, 2016 15:52
[2016-10-22] MEDS: CEFTRIAXONE 1 GM/50 ML (PMX) 50 ML IVPB SCH (18:15)
[2016-10-22 18:33] VITALS: BP 134/78
[2016-10-22] MEDS: DIPHENHYDRAMINE 25 MG CAP PO SCH (23:25)
[2016-10-23] MEDS: 1/2 NS + KCL 20 MEQ 1,000 ML IV SCH ×4 (01:41→23:27)
[2016-10-23 07:07] LABS: BASOPHILS % 0.5 % (0.0-2.0); EOSINOPHILS # 0.9 10^3/ul (0.0-0.5); EOSINOPHILS % 11.9 % (0.0-7.0); HEMATOCRIT 42.5 % (42.0-52.0); HEMOGLOBIN 14.6 g/dl (14.0-18.0); LYMPHOCYTES # 1.7 10^3/ul (0.8-2.9); LYMPHOCYTES % 22.4 % (15.0-51.0); MEAN CORPUSCULAR HGB CONC 34.3 g/dl (32.0-37.0); MEAN CORPUSCULAR VOLUME 87.6 fl (82.0-101.0); MEAN PLATELET VOLUME 10.7 fl (7.4-10.4); MONOCYTE # 0.7 10^3/ul (0.3-0.9); MONOCYTES % 8.6 % (0.0-11.0); NEUTROPHIL # 4.3 10^3/ul (1.6-7.5); NEUTROPHILS % 56.6 % (39.0-77.0); PLATELET COUNT 216 10^3/UL (140-440); POTASSIUM 4.2 mmol/L (3.5-5.1); RED BLOOD COUNT 4.85 10^6/ul (4.70-6.10); RED CELL DISTRIBUTION WIDTH 14.1 % (11.5-14.5); UNCORRECTED WBC 7.6 10^3/ul (4.8-10.8); WHITE BLOOD COUNT 7.6 10^3/ul (4.8-10.8)
[2016-10-23 07:10] LABS: CREATININE 1.03 mg/dl (0.61-1.24)
[2016-10-23 07:11] LABS: CALCIUM 9.3 mg/dl (8.4-10.2)
[2016-10-23 07:32] LABS: CONDITION 1
[2016-10-23 08:03] VITALS: BP 140/96; RESP 16
[2016-10-23] MEDS: OLANZAPINE 2.5 MG TAB PO SCH ×2 (08:29→20:24)
[2016-10-23] MEDS: CITRIC ACID/NA CITRATE 30 ML CUP PO SCH ×3 (08:29→20:25)
[2016-10-23] MEDS: COLCHICINE 0.6 MG TAB PO SCH (08:29)
[2016-10-23] MEDS: ASCORBIC ACID 250 MG TAB PO SCH (08:29)
[2016-10-23] MEDS: LIDOCAINE 5% PATCH TD SCH (08:29)
[2016-10-23] MEDS: FAMOTIDINE 20 MG TAB PO SCH ×2 (08:29→20:24)
[2016-10-23] MEDS: AMLODIPINE 5 MG TAB PO SCH ×2 (08:30→20:25)
[2016-10-23] MEDS: VALSARTAN 160 MG TAB PO SCH (08:31)
[2016-10-23] MEDS: METOPROLOL 50 MG TAB PO SCH ×2 (08:32→20:26)
[2016-10-23] MEDS: LEVETIRACETAM IV 1,000 MG in SOD CHLORIDE 0.9% 100 ML IVPB SCH ×2 (08:34→20:24)
[2016-10-23] MEDS: CHLORDIAZEPOXIDE 25 MG CAP PO SCH ×3 (08:34→20:25)
[2016-10-23] MEDS: LITHIUM CARBONATE 300 MG CAP PO SCH (09:00)
[2016-10-23] MEDS: MULTIVITAMINS 10 ML, THIAMINE 100 MG, FOLIC ACID 1 MG in SOD CHLORIDE 0.9% 1,000 ML IVPB SCH (10:07)
--- NOTE | 2016-10-23 15:20 | PN ---
Date/Time of Note Date/Time of Note DATE: 10/23/16 TIME: 15:19 Assessment/Plan VTE Prophylaxis VTE Prophylaxis Intervention: SCD's Lines/Catheters IV C[facility]ter Type (from [facility]): Peripheral IV Urinary Cath still in place: No Assessment/Plan Chief Complaint/Hosp Course Assessment and plan 1. Altered mental status. Suspect postictal versus alcohol intoxication. Continue on Librium. Continue with IV hydration. Neurologist following 2. History of seizure. Continue on Keppra 3. History of medical disorder. Continue on lithium 4. Essential hypertension. Continue antihypertensives and adjust as needed 5. Acute kidney injury. Improved at this time. We'll monitor 6. Rhabdomyolysis. Improving at present per continue IV hydration 7. Suspect history of alcohol abuse. cloth printing utility worker to follow. Disposition and plan: Discussed with family. cloth printing utility worker to follow. May need some type of assisted living. Case management to be involved. Discussed plan of care with Dr. Dunbar Problems: Subjective 24 Hr Interval Summary Free Text/Dictation Appears slightly more alert today. Exam/Review of Systems Vital Signs Vitals Vital Signs Date Time Temp Pulse Resp B/P Pulse Ox O2 Delivery O2 Flow Rate FiO2 10/23/16 08:03 98.3 88 16 140/96 98 10/20/16 21:01 Room Air Intake and Output 10/22/16 10/22/16 10/23/16 15:00 23:00 07:00 Intake Total 510 ml 1010 ml 1371.2 ml Balance 510 ml 1010 ml 1371.2 ml Exam General: No acute signs or symptoms of distress Eyes: pupils equal round, Anicteric sclera Neck: Supple nontender, no JVD Cardiac: S1, S2 auscultated, regular rhythm and rate Pulmonary: No coarse rhonchi or breathing auscultated GI: Abdomen soft nontender nondistended, bowel sounds active Extremities: No edema bilateral lower extremitie Skin: Clean dry and intact Neurologic: More alert to person and place Results Result Diagram: 10/23/16 0510 10/23/16 0510 Results 24 hrs Laboratory Tests Test 10/23/16 05:10 Anion Gap 19 H Basophils # 0.0 Basophils % 0.5 Blood Morphology Comment Blood Urea Nitrogen 14 Calcium Level 9.3 Carbon Dioxide Level 22 Chloride Level 108 Creatinine 1.03 Eosinophils # 0.9 H Eosinophils % 11.9 H Glucose Level 83 Hematocrit 42.5 Hemoglobin 14.6 Lymphocytes # 1.7 Lymphocytes % 22.4 Mean Corpuscular Hemoglobin 30.0 Mean Corpuscular Hemoglobin Concent 34.3 Mean Corpuscular Volume 87.6 Mean Platelet Volume 10.7 H Monocytes # 0.7 Monocytes % 8.6 Neutrophils # 4.3 Neutrophils % 56.6 Nucleated Red Blood Cells # 0.0 Nucleated Red Blood Cells % 0.0 Platelet Count 216 Potassium Level 4.2 Red Blood Count 4.85 Red Cell Distribution Width 14.1 Sodium Level 145 H White Blood Count 7.6 Medications Medications Current Medications Multivitamins 10 ml/Thiamine HCl 100 mg/Folic Acid 1 mg/Sodium Chloride 1,011.2 ml @ 100 mls/ hr DAILY@09 IVPB Last administered on 10/23/16 10:07; Admin Dose 100 MLS/HR; Start 10/21/16 at 09:00 Potassium Chloride/Sodium Chloride (/2 NS + KCl 20 Meq) 1,000 ml @ 100 mls/hr Q10H IV Last administered on 10/23/16 01:41; Admin Dose 100 MLS/HR; Start at 20:00 Acetaminophen (Tylenol Tab) 650 mg Q6H PRN PO PAIN LEVEL 1-3 OR FEVER; Start at 16:00 Docusate Sodium (Colace) 100 mg Q12H PRN PO CONSTIPATION; Start 10/20/16 at 16: 00 Famotidine (Pepcid) 20 mg Q12 PO Last administered on 10/23/16 08:29; Admin Dose 20 MG; Start 10/20/16 at 21:00 Ascorbic Acid (Vitamin C) 250 mg DAILY PO Last administered on 10/23/16 08:29 ; Admin Dose 250 MG; Start 10/21/16 at 09:00 Bisacodyl (Dulcolax) 5 mg DAILY PRN PO CONSTIPATION; Start 10/20/16 at 16:30 Citric Acid/ Sodium Citrate (Bicitra) 30 ml TID PO Last administered on 12:34; Admin Dose 30 ML; Start 10/20/16 at 21:00 Colchicine (Colchicine) 0.6 mg DAILY PO Last administered on 10/23/16 08:29; Admin Dose 0.6 MG; Start 10/21/16 at 09:00 Diphenhydramine HCl (Benadryl) 25 mg QHS PO Last administered on 10/22/16 23: 25; Admin Dose 25 MG; Start 10/20/16 at 21:00 Lidocaine (Lidoderm) 1 patch DAILY TD Last administered on 10/23/16 08:29; Admin Dose 1 PATCH; Start 10/21/16 at 09:00 [employer] Carbonate ([employer] Carbonate) 300 mg BID PO Last administered on 21:54; Admin Dose 300 MG; Start 10/20/16 at 21:00 Metoprolol Tartrate (Lopressor) 50 mg BID PO Last administered on 10/23/16 08: 32; Admin Dose 50 MG; Start 10/20/16 at 21:00 Valsartan (Diovan) 160 mg DAILY PO Last administered on 10/23/16 08:31; Admin Dose 160 MG; Start 10/21/16 at 09:00 Olanzapine (Zyprexa) 7.5 mg BID PO Last administered on 10/23/16 08:29; Admin Dose 7.5 MG; Start 10/20/16 at 21:00 Miscellaneous Information 1 ea NOTE XX ; Start 10/20/16 at 17:00 Chlordiazepoxide 50 mg 50 mg TID PO Last administered on 10/23/16 12:34; Admin Dose 50 MG; Start 10/21/16 at 21:00 Levetiracetam 1000 mg/Sodium Chloride 110 ml @ 440 mls/hr Q12 IVPB Last administered on 10/23/16 08:34; Admin Dose 440 MLS/HR; Start 10/20/16 at 21:00 Ceftriaxone Sodium (Rocephin) 50 ml @ 100 mls/hr Q24H IVPB Last administered on 10/22/16 18:15; Admin Dose 100 MLS/HR; Start 10/20/16 at 17:30; Stop at 17:29 Lorazepam (Ativan) 1 mg Q4H PRN IV ANXIETY Last administered on 10/22/16 13:07 ; Admin Dose 1 MG; Start 10/21/16 at 13:30 Hydralazine HCl (Apresoline) 10 mg Q6H PRN IV ELEVATED BLOOD PRESSURE Last administered on 10/22/16 10:09; Admin Dose 10 MG; Start 10/22/16 at 10:00 Amlodipine Besylate (Norvasc) 5 mg BID PO Last administered on 10/23/16 08:30 ; Admin Dose 5 MG; Start 10/23/16 at 09:00 Clonidine (Catapres) 0.1 mg Q4H PRN PO sbp>160 Last administered on 10/22/16 13:11; Admin Dose 0.1 MG; Start 10/22/16 at 12:00 FRANCISCO RAMIREZ Oct 23, 2016 15:20
[2016-10-23 19:46] VITALS: BP 147/85; RESP 18
[2016-10-23] MEDS: LITHIUM CARBONATE 150 MG CAP PO SCH (21:58)
[2016-10-23] MEDS: DIPHENHYDRAMINE 25 MG CAP PO SCH (21:58)
[2016-10-24] MEDS: 1/2 NS + KCL 20 MEQ 1,000 ML IV SCH ×2 (04:00→14:00)
[2016-10-24 06:06] LABS: POTASSIUM 3.9 mmol/L (3.5-5.1)
[2016-10-24 06:09] LABS: CREATININE 1.14 mg/dl (0.61-1.24)
[2016-10-24 06:10] LABS: CALCIUM 8.9 mg/dl (8.4-10.2)
[2016-10-24 07:24] VITALS: BP 137/81; RESP 18
[2016-10-24] MEDS: LIDOCAINE 5% PATCH TD SCH (09:00)
[2016-10-24] MEDS: LEVETIRACETAM IV 1,000 MG in SOD CHLORIDE 0.9% 100 ML IVPB SCH ×2 (09:48→21:12)
[2016-10-24] MEDS: CITRIC ACID/NA CITRATE 30 ML CUP PO SCH ×3 (09:48→21:12)
[2016-10-24] MEDS: MULTIVITAMINS 10 ML, THIAMINE 100 MG, FOLIC ACID 1 MG in SOD CHLORIDE 0.9% 1,000 ML IVPB SCH (09:48)
[2016-10-24] MEDS: ASCORBIC ACID 250 MG TAB PO SCH (09:49)
[2016-10-24] MEDS: CHLORDIAZEPOXIDE 25 MG CAP PO SCH ×3 (09:49→21:14)
[2016-10-24] MEDS: LITHIUM CARBONATE 150 MG CAP PO SCH ×2 (09:49→22:21)
[2016-10-24] MEDS: OLANZAPINE 2.5 MG TAB PO SCH ×2 (09:49→21:13)
[2016-10-24] MEDS: COLCHICINE 0.6 MG TAB PO SCH (09:49)
[2016-10-24] MEDS: AMLODIPINE 5 MG TAB PO SCH ×2 (09:50→22:21)
[2016-10-24] MEDS: FAMOTIDINE 20 MG TAB PO SCH ×2 (09:50→21:14)
[2016-10-24] MEDS: METOPROLOL 50 MG TAB PO SCH ×2 (09:50→21:14)
[2016-10-24] MEDS: VALSARTAN 160 MG TAB PO SCH (09:51)
[2016-10-24 10:50] LABS: HEMOGLOBIN 13.4 g/dl (14.0-18.0); RED BLOOD COUNT 4.55 10^6/ul (4.70-6.10); WHITE BLOOD COUNT 7.4 10^3/ul (4.8-10.8)
[2016-10-24 10:51] LABS: BASOPHILS % 0.5 % (0.0-2.0); EOSINOPHILS % 13.3 % (0.0-7.0); HEMATOCRIT 40.4 % (42.0-52.0); LYMPHOCYTES # 2.1 10^3/ul (0.8-2.9); LYMPHOCYTES % 28.5 % (15.0-51.0); MEAN CORPUSCULAR HEMOGLOBIN 29.5 pg (29.0-33.0); MEAN CORPUSCULAR HGB CONC 33.2 g/dl (32.0-37.0); MEAN CORPUSCULAR VOLUME 88.8 fl (82.0-101.0); MEAN PLATELET VOLUME 12.1 fl (7.4-10.4); MONOCYTES % 8.3 % (0.0-11.0); NEUTROPHIL # 3.6 10^3/ul (1.6-7.5); NEUTROPHILS % 49.1 % (39.0-77.0); PLATELET COUNT 243 10^3/UL (140-440); RED CELL DISTRIBUTION WIDTH 13.5 % (11.5-14.5)
[2016-10-24 10:52] LABS: MONOCYTE # 0.6 10^3/ul (0.3-0.9)
--- NOTE | 2016-10-24 15:27 | PN ---
Date/Time of Note Date/Time of Note DATE: 10/24/16 TIME: 15:24 Assessment/Plan VTE Prophylaxis VTE Prophylaxis Intervention: SCD's Lines/Catheters [facility] Peripheral IV Urinary Cath still in place: No Assessment/Plan Chief Complaint/Hosp Course Assessment and plan 1. Altered mental status. Suspect postictal versus alcohol intoxication. Continue on Librium. Continue with IV hydration. Neurologist following 2. History of seizure. Continue on Keppra 3. History of medical disorder. Continue on lithium 4. Essential hypertension. Continue antihypertensives and adjust as needed 5. Acute kidney injury. Improved at this time. We'll monitor 6. Rhabdomyolysis. Improving at present per continue IV hydration 7. Suspect history of alcohol abuse. harm reduction worker to follow. Disposition and plan: Discussed with case management. Will try to find patient board and care vs. assisted living. Patient does report unable to care for self . Discussed plan of care with Dr. Bella Problems: Subjective 24 Hr Interval Summary Free Text/Dictation resting at this time. alert and oriented now Exam/Review of Systems Vital Signs Vitals Vital Signs Date Time Temp Pulse Resp B/P Pulse Ox O2 Delivery O2 Flow Rate FiO2 10/24/16 07:24 97.6 68 18 137/81 98 10/20/16 21:01 Room Air Intake and Output 10/23/16 10/23/16 10/24/16 15:00 23:00 07:00 Intake Total 510 ml 1490 ml 1611.2 ml Balance 510 ml 1490 ml 1611.2 ml Exam General: No acute signs or symptoms of distress Eyes: pupils equal round, Anicteric sclera Neck: Supple nontender, no JVD Cardiac: S1, S2 auscultated, regular rhythm and rate Pulmonary: No coarse rhonchi or breathing auscultated GI: Abdomen soft nontender nondistended, bowel sounds active Extremities: No edema bilateral lower extremitie Skin: Clean dry and intact Neurologic: More alert to person and place and situation Results Result Diagram: 10/24/16 0510 10/24/16 0510 Results 24 hrs Laboratory Tests Test 10/24/16 05:10 Anion Gap 15 Basophils # 0.0 Basophils % 0.5 Blood Urea Nitrogen 14 Calcium Level 8.9 Carbon Dioxide Level 26 Chloride Level 108 Creatinine 1.14 Eosinophils # 1.0 H Eosinophils % 13.3 H Glucose Level 103 Hematocrit 40.4 L Hemoglobin 13.4 L Lymphocytes # 2.1 Lymphocytes % 28.5 Mean Corpuscular Hemoglobin 29.5 Mean Corpuscular Hemoglobin Concent 33.2 Mean Corpuscular Volume 88.8 Mean Platelet Volume 12.1 H Monocytes # 0.6 Monocytes % 8.3 Neutrophils # 3.6 Neutrophils % 49.1 Nucleated Red Blood Cells # 0.0 Nucleated Red Blood Cells % 0.0 Platelet Count 243 Potassium Level 3.9 Red Blood Count 4.55 L Red Cell Distribution Width 13.5 Sodium Level 145 H White Blood Count 7.4 Medications Medications Current Medications Multivitamins 10 ml/Thiamine HCl 100 mg/Folic Acid 1 mg/Sodium Chloride 1,011.2 ml @ 100 mls/ hr DAILY@09 IVPB Last administered on 10/24/16 09:48; Admin Dose 100 MLS/HR; Start 10/21/16 at 09:00 Potassium Chloride/Sodium Chloride (1/2 NS + KCl 20 Meq) 1,000 ml @ 100 mls/hr Q10H IV Last administered on 10/23/16 23:27; Admin Dose 100 MLS/HR; Start at 20:00 Acetaminophen (Tylenol Tab) 650 mg Q6H PRN PO PAIN LEVEL 1-3 OR FEVER; Start at 16:00 Docusate Sodium (Colace) 100 mg Q12H PRN PO CONSTIPATION; Start 10/20/16 at 16: 00 Famotidine (Pepcid) 20 mg Q12 PO Last administered on 10/24/16 09:50; Admin Dose 20 MG; Start 10/20/16 at 21:00 Ascorbic Acid (Vitamin C) 250 mg DAILY PO Last administered on 10/24/16 09:49 ; Admin Dose 250 MG; Start 10/21/16 at 09:00 Bisacodyl (Dulcolax) 5 mg DAILY PRN PO CONSTIPATION; Start 10/20/16 at 16:30 Citric Acid/ Sodium Citrate (Bicitra) 30 ml TID PO Last administered on 12:20; Admin Dose 30 ML; Start 10/20/16 at 21:00 Colchicine (Colchicine) 0.6 mg DAILY PO Last administered on 10/24/16 09:49; Admin Dose 0.6 MG; Start 10/21/16 at 09:00 Diphenhydramine HCl (Benadryl) 25 mg QHS PO Last administered on 10/23/16 21: 58; Admin Dose 25 MG; Start 10/20/16 at 21:00 Lidocaine (Lidoderm) 1 patch DAILY TD Last administered on 10/23/16 08:29; Admin Dose 1 PATCH; Start 10/21/16 at 09:00 Metoprolol Tartrate (Lopressor) 50 mg BID PO Last administered on 10/24/16 09: 50; Admin Dose 50 MG; Start 10/20/16 at 21:00 Valsartan (Diovan) 160 mg DAILY PO Last administered on 10/24/16 09:51; Admin Dose 160 MG; Start 10/21/16 at 09:00 Olanzapine (Zyprexa) 7.5 mg BID PO Last administered on 10/24/16 09:49; Admin Dose 7.5 MG; Start 10/20/16 at 21:00 Miscellaneous Information 1 ea NOTE XX ; Start 10/20/16 at 17:00 Chlordiazepoxide 50 mg 50 mg TID PO Last administered on 10/24/16 12:20; Admin Dose 50 MG; Start 10/21/16 at 21:00 Levetiracetam/ Sodium Chloride (Keppra Iv/NS) 110 ml @ 440 mls/hr Q12 IVPB Last administered on 10/24/16 09:48; Admin Dose 440 MLS/HR; Start 10/20/16 at 21:00 Lorazepam (Ativan) 1 mg Q4H PRN IV ANXIETY Last administered on 10/22/16 13:07 ; Admin Dose 1 MG; Start 10/21/16 at 13:30 Hydralazine HCl (Apresoline) 10 mg Q6H PRN IV ELEVATED BLOOD PRESSURE Last administered on 10/22/16 10:09; Admin Dose 10 MG; Start 10/22/16 at 10:00 Amlodipine Besylate (Norvasc) 5 mg BID PO Last administered on 10/24/16 09:50 ; Admin Dose 5 MG; Start 10/23/16 at 09:00 Clonidine (Catapres) 0.1 mg Q4H PRN PO sbp>160 Last administered on 10/22/16 13:11; Admin Dose 0.1 MG; Start 10/22/16 at 12:00 [place] Carbonate ([place] Carbonate) 300 mg BID PO Last administered on t 09:49; Admin Dose 300 MG; Start 10/23/16 at 21:30 FRANCISCO RAMIREZ Oct 24, 2016 15:27
[2016-10-24 19:11] VITALS: BP 148/98; RESP 20
[2016-10-24] MEDS: DIPHENHYDRAMINE 25 MG CAP PO SCH (22:21)
[2016-10-25] MEDS: 1/2 NS + KCL 20 MEQ 1,000 ML IV SCH ×3 (02:15→10:00)
[2016-10-25 06:05] LABS: BASOPHILS % 0.5 % (0.0-2.0); EOSINOPHILS # 1.1 10^3/ul (0.0-0.5); EOSINOPHILS % 13.7 % (0.0-7.0); HEMATOCRIT 39.8 % (42.0-52.0); HEMOGLOBIN 13.8 g/dl (14.0-18.0); LYMPHOCYTES # 1.9 10^3/ul (0.8-2.9); LYMPHOCYTES % 24.5 % (15.0-51.0); MEAN CORPUSCULAR HEMOGLOBIN 30.1 pg (29.0-33.0); MEAN CORPUSCULAR HGB CONC 34.5 g/dl (32.0-37.0); MEAN CORPUSCULAR VOLUME 87.2 fl (82.0-101.0); MEAN PLATELET VOLUME 10.3 fl (7.4-10.4); MONOCYTE # 0.5 10^3/ul (0.3-0.9); MONOCYTES % 6.5 % (0.0-11.0); NEUTROPHIL # 4.3 10^3/ul (1.6-7.5); NEUTROPHILS % 54.8 % (39.0-77.0); PLATELET COUNT 234 10^3/UL (140-440); RED BLOOD COUNT 4.57 10^6/ul (4.70-6.10); UNCORRECTED WBC 7.9 10^3/ul (4.8-10.8); WHITE BLOOD COUNT 7.9 10^3/ul (4.8-10.8)
[2016-10-25 06:12] LABS: POTASSIUM 4.1 mmol/L (3.5-5.1)
[2016-10-25 06:15] LABS: CALCIUM 9.1 mg/dl (8.4-10.2); CREATININE 1.1 mg/dl (0.61-1.24)
[2016-10-25 06:18] LABS: CONDITION 1
[2016-10-25 08:03] VITALS: BP 124/79; RESP 20
[2016-10-25] MEDS: METOPROLOL 50 MG TAB PO SCH (08:39)
[2016-10-25] MEDS: MULTIVITAMINS 10 ML, THIAMINE 100 MG, FOLIC ACID 1 MG in SOD CHLORIDE 0.9% 1,000 ML IVPB SCH (08:39)
[2016-10-25] MEDS: CITRIC ACID/NA CITRATE 30 ML CUP PO SCH ×2 (08:39→13:08)
[2016-10-25] MEDS: CHLORDIAZEPOXIDE 25 MG CAP PO SCH ×2 (08:39→13:08)
[2016-10-25] MEDS: COLCHICINE 0.6 MG TAB PO SCH (08:39)
[2016-10-25] MEDS: VALSARTAN 160 MG TAB PO SCH (08:39)
[2016-10-25] MEDS: FAMOTIDINE 20 MG TAB PO SCH (08:39)
[2016-10-25] MEDS: LIDOCAINE 5% PATCH TD SCH (08:40)
[2016-10-25] MEDS: LITHIUM CARBONATE 150 MG CAP PO SCH (08:40)
[2016-10-25] MEDS: ASCORBIC ACID 250 MG TAB PO SCH (08:40)
[2016-10-25] MEDS: AMLODIPINE 5 MG TAB PO SCH (08:40)
[2016-10-25] MEDS: OLANZAPINE 2.5 MG TAB PO SCH (08:40)
[2016-10-25] MEDS: LEVETIRACETAM IV 1,000 MG in SOD CHLORIDE 0.9% 100 ML IVPB SCH (08:43)
--- NOTE | 2016-10-25 10:14 | PN ---
Date/Time of Note Date/Time of Note DATE: 10/25/16 TIME: 10:13 Assessment/Plan VTE Prophylaxis VTE Prophylaxis Intervention: SCD's Lines/Catheters IV C[facility]ter Type (from [facility] Peripheral IV Urinary Cath still in place: No Assessment/Plan Assessment/Plan 1. Altered mental status. Suspect postictal versus alcohol intoxication. Continue on Librium. Continue with IV hydration. Neurologist following 2. History of seizure. Continue on Keppra 3. History of medical disorder. Continue on lithium 4. Essential hypertension. Continue antihypertensives and adjust as needed 5. Acute kidney injury. Improved at this time. We'll monitor 6. Rhabdomyolysis. Improving at present per continue IV hydration 7. Suspect history of alcohol abuse. 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 Subjective 24 Hr Interval Summary Free Text/Dictation more alert, no seizures Exam/Review of Systems Vital Signs Vitals Vital Signs Date Time Temp Pulse Resp B/P Pulse Ox O2 Delivery O2 Flow Rate FiO2 10/25/16 08:03 98.8 69 20 124/79 98 Intake and Output 10/24/16 10/24/16 10/25/16 15:00 23:00 07:00 Intake Total 1610 ml 1771.2 ml Balance 1610 ml 1771.2 ml Exam General: No acute signs or symptoms of distress Eyes: pupils equal round, Anicteric sclera Neck: Supple nontender, no JVD Cardiac: S1, S2 auscultated, regular rhythm and rate Pulmonary: No coarse rhonchi or breathing auscultated GI: Abdomen soft nontender nondistended, bowel sounds active Extremities: No edema bilateral lower extremitie Skin: Clean dry and intact Neurologic: More alert to person and place Results Result Diagram: 10/25/16 0535 10/25/16 0535 Results 24 hrs Laboratory Tests Test 10/25/16 05:35 Anion Gap 15 Basophils # 0.0 Basophils % 0.5 Blood Urea Nitrogen 11 Calcium Level 9.1 Carbon Dioxide Level 25 Chloride Level 110 Creatinine 1.10 Eosinophils # 1.1 H Eosinophils % 13.7 H Glucose Level 96 Hematocrit 39.8 L Hemoglobin 13.8 L Lymphocytes # 1.9 Lymphocytes % 24.5 Mean Corpuscular Hemoglobin 30.1 Mean Corpuscular Hemoglobin Concent 34.5 Mean Corpuscular Volume 87.2 Mean Platelet Volume 10.3 Monocytes # 0.5 Monocytes % 6.5 Neutrophils # 4.3 Neutrophils % 54.8 Nucleated Red Blood Cells # 0.0 Nucleated Red Blood Cells % 0.0 Platelet Count 234 Potassium Level 4.1 Red Blood Count 4.57 L Red Cell Distribution Width 14.0 Sodium Level 146 H White Blood Count 7.9 Medications Medications Current Medications Multivitamins 10 ml/Thiamine HCl 100 mg/Folic Acid 1 mg/Sodium Chloride 1,011.2 ml @ 100 mls/ hr DAILY@09 IVPB Last administered on 10/25/16 08:39; Admin Dose 100 MLS/HR; Start 10/21/16 at 09:00 Potassium Chloride/Sodium Chloride (09/05 NS + KCl 20 Meq) 1,000 ml @ 100 mls/hr Q10H IV Last administered on 10/25/16 02:15; Admin Dose 100 MLS/HR; Start at 20:00 Acetaminophen (Tylenol Tab) 650 mg Q6H PRN PO PAIN LEVEL 1-3 OR FEVER; Start at 16:00 Docusate Sodium (Colace) 100 mg Q12H PRN PO CONSTIPATION; Start 10/20/16 at 16: 00 Famotidine (Pepcid) 20 mg Q12 PO Last administered on 10/25/16 08:39; Admin Dose 20 MG; Start 10/20/16 at 21:00 Ascorbic Acid (Vitamin C) 250 mg DAILY PO Last administered on 10/25/16 08:40 ; Admin Dose 250 MG; Start 10/21/16 at 09:00 Bisacodyl (Dulcolax) 5 mg DAILY PRN PO CONSTIPATION; Start 10/20/16 at 16:30 Citric Acid/ Sodium Citrate (Bicitra) 30 ml TID PO Last administered on 08:39; Admin Dose 30 ML; Start 10/20/16 at 21:00 Colchicine (Colchicine) 0.6 mg DAILY PO Last administered on 10/25/16 08:39; Admin Dose 0.6 MG; Start 10/21/16 at 09:00 Diphenhydramine HCl (Benadryl) 25 mg QHS PO Last administered on 10/24/16 22: 21; Admin Dose 25 MG; Start 10/20/16 at 21:00 Lidocaine (Lidoderm) 1 patch DAILY TD Last administered on 10/25/16 08:40; Admin Dose 1 PATCH; Start 10/21/16 at 09:00 Metoprolol Tartrate (Lopressor) 50 mg BID PO Last administered on 10/25/16 08: 39; Admin Dose 50 MG; Start 10/20/16 at 21:00 Valsartan (Diovan) 160 mg DAILY PO Last administered on 10/25/16 08:39; Admin Dose 160 MG; Start 10/21/16 at 09:00 Olanzapine (Zyprexa) 7.5 mg BID PO Last administered on 10/25/16 08:40; Admin Dose 7.5 MG; Start 10/20/16 at 21:00 Miscellaneous Information 1 ea NOTE XX ; Start 10/20/16 at 17:00 Chlordiazepoxide 50 mg 50 mg TID PO Last administered on 10/25/16 08:39; Admin Dose 50 MG; Start 10/21/16 at 21:00 Levetiracetam/ Sodium Chloride (Keppra Iv/NS) 110 ml @ 440 mls/hr Q12 IVPB Last administered on 10/25/16 08:43; Admin Dose 440 MLS/HR; Start 10/20/16 at 21:00 Lorazepam (Ativan) 1 mg Q4H PRN IV ANXIETY Last administered on 10/22/16 13:07 ; Admin Dose 1 MG; Start 10/21/16 at 13:30 Hydralazine HCl (Apresoline) 10 mg Q6H PRN IV ELEVATED BLOOD PRESSURE Last administered on 10/22/16 10:09; Admin Dose 10 MG; Start 10/22/16 at 10:00 Amlodipine Besylate (Norvasc) 5 mg BID PO Last administered on 10/25/16 08:40 ; Admin Dose 5 MG; Start 10/23/16 at 09:00 Clonidine (Catapres) 0.1 mg Q4H PRN PO sbp>160 Last administered on 10/22/16 13:11; Admin Dose 0.1 MG; Start 10/22/16 at 12:00 Centre Carbonate (Centre Carbonate) 300 mg BID PO Last administered on 08:40; Admin Dose 300 MG; Start 10/23/16 at 21:30 YOSEF MOREL MD Oct 25, 2016 10:14
--- NOTE | 2016-10-25 10:15 | PDOCDIS ---
Discharge Instructions CONDITION Patient Condition: Good HOME CARE INSTRUCTIONS: Special Diet: Regular diet ACTIVITY: Activity Restrictions: Slowly Increase Activity Rest between Activity Avoid heavy lifting Avoid Heavy Housework FOLLOW UP/APPOINTMENTS Appointments Follow up with his own PMD in 1-2 week aftetr discharge. Follow up with neurology as outpatient in 1-2 week after discharge YOSEF MOREL MD Oct 25, 2016 10:15
[2016-10-25] MEDS ORDERED: LORA1TAB PO (10:18)
[2016-10-25] MEDS ORDERED: LEVE-5 PO (10:18)
--- NOTE | 2016-10-26 21:52 | DS ---
DATE OF ADMISSION: 10/21/2016 DATE OF DISCHARGE: 10/25/2016 FINAL DISCHARGE DIAGNOSES: 1. Altered mental status secondary to postictal state. 2. Possible breakthrough seizure with a history of seizure disorder. 3. Acute alcohol intoxication. 4. History of bipolar disorder. 5. History of hypertension. 6. Acute kidney injury secondary to prerenal azotemia. 7. Acute rhabdomyolysis, treated with intravenous fluid hydration. 8. History of alcohol abuse. CONSULTATIONS DONE DURING THIS HOSPITALIZATION: Neurology consult, Dr. Maryjane Montgomery HISTORY OF PRESENT ILLNESS: This is a 51-year-old male with a past medical history of seizure disor drew, gout, mood disorder, questionable schizophrenia, hypertension, alcohol abuse and history of sei zure disorder. He was brought in for altered mental status and confusional status. As per the EMS, he may be alcohol intoxicated or had a possible breakthrough seizure. He was admitted to the med/s urg floor, had neurology evaluation. He was given banana bag and IV Keppra for breakthrough seizure s. He remained hemodynamically stable. After getting stable vital signs and back to the normal bas abe status, he is getting discharged to home. His brother did not accept him home, so he was set up for correction placement for rehab upon discharge. DISPOSITION: To a correction facility. DISCHARGE CONDITION: Stable, improved compared to admission. DISCHARGE ACTIVITIES: As tolerated. Slowly resume to the normal baseline activity. DISCHARGE MEDICATIONS: As per medical reconciliation. DISCHARGE FOLLOWUP INSTRUCTIONS: The patient is to follow up with the physician at the skilled nurs ing facility. Dictated By: YOSEF MOREL MD, KP/DONN Conf#: [id number] DID#: [id number]
[2016-10-27 07:20] VITALS: BP 153/74; RESP 22
== END 2016-10-25 16:10 | DRG 101 ==
LOC: E/R 08:34 → MS2 13:28 → UNDOADMOB 13:28 → OBSVTOIN 10-21 12:29
PROVIDERS: ADMIT Family Medicine; ATTEND Family Medicine
DX: G40.909 Epilepsy, unspecified, not intractable, without status epilepticus (principal); N17.9 Acute kidney failure, unspecified; M62.82 Rhabdomyolysis; Z96.89 Presence of other specified functional implants; Z98.2 Presence of cerebrospinal fluid drainage device; I10 Essential (primary) hypertension; N28.9 Disorder of kidney and ureter, unspecified; F10.129 Alcohol abuse with intoxication, unspecified; Z86.73 Personal history of transient ischemic attack (TIA), and cerebral infarction without residual deficits; F31.9 Bipolar disorder, unspecified
CPT/HCPCS: 36415; 70450; 71010; 80048; 80053; 80306; 81001; 81003; 82550; 82553; 83690; 83735; 84443; 84484; 85025; 85610; 86703; 92526; 92610; 93005; 96365; 96372; 96375; 97116; 97530; G0378; J0360; J0696; J1953; J2060; J3411; J3480; J7030

== ENCOUNTER 2017-02-25 11:11 | Emergency (ER) | payer MEDICARE, OTHER ==
[~2017-02-25] VITALS: Ht 180.3 cm; Wt 102.4 kg
[~2017-02-25 11:11] MED LIST changes: -BACTDS PO; -CEPH-443 PO; +LORA1TAB PO; -SULF1TAB31 PO
[2017-02-25 11:17] VITALS: Ht 180.3 cm; Wt 102.4 kg
--- NOTE | 2017-02-25 12:35 | RADRPT ---
PROCEDURE: CT brain without contrast CLINICAL INDICATION: Hematoma frontal head region, peripheral vision loss TECHNIQUE: CT of the brain without contrast performed on a multidetector CT scanner, with multiplan ar reformats. One or more of the following dose reduction techniques were used: Automated exposure control, adjustment in mA and / or kV according to patient size, use of iterative reconstructive paramjit hnique. CTDIvol = 44 mGy; DLP = 720 mGy-cm. 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 The visualized portions of the shunt appear intact. No acute intracranial hemorrhage is identified. No extra-axial fluid collection is seen. There is no mass effect. No midline shift is identified. The ventricles and sulci are otherwise mildly enlarged compatible with volume loss. No hydrocephalo us is identified. Ventricles - sulci are stable in size and configuration. A small chronic infarct is identified in the right cerebellar hemisphere. Otherwise josé-white diffe rentiation is preserved. Vascular calcifications are seen at the intracranial internal carotid ronni rizwan. There is persistent mild left parietal scalp swelling/thickening. Mastoid air cells and imaged para nasal sinuses grossly clear. IMPRESSION: 1. No acute intracranial pathology identified. 2. 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 3. Right trans frontal ventricular shunt in place; stable appearance of the ventricles, without hyd rocephalus identified. 4. Mild volume loss. 5. Small chronic right cerebellar infarct. 6. Persistent mild left parietal scalp swelling/thickening. RPTAT: EE .Arun Loaiza MD, MD Date Time Electronically viewed and signed by .Arun Loaiza MD, on 02/25/2017 12:35 .O/
[2017-02-25 12:58] LABS: ADD UMIC NO; UR ASCORBIC ACID NEGATIVE (NEGATIVE); UR BILIRUBIN (Dip) NEGATIVE (NEGATIVE); UR BLOOD (Dip) NEGATIVE (NEGATIVE); UR CLARITY CLEAR (CLEAR); UR COLOR YELLOW (YELLOW); UR GLUCOSE (Dip) NEGATIVE (NEGATIVE); UR KETONES (Dip) NEGATIVE (NEGATIVE); UR LEUKOCYTE ESTERASE (Dip) NEGATIVE Leu/ul (NEGATIVE); UR NITRITE (Dip) NEGATIVE (NEGATIVE); UR TOTAL PROTEIN (Dip) NEGATIVE (NEGATIVE); UR UROBILINOGEN (Dip) NEGATIVE (NEGATIVE)
[2017-02-25 13:12] LABS: ADD SCAN DIFF NO
[2017-02-25 13:16] LABS: BARBITURATES Negative (NEGATIVE); BENZODIAZEPINES Negative (NEGATIVE); CANNABINOIDS Negative (NEGATIVE); COCAINE Negative (NEGATIVE); OPIATES Negative (NEGATIVE)
[2017-02-25 13:17] LABS: BASOPHILS % 0.4 % (0.0-2.0); EOSINOPHILS # 1.6 10^3/ul (0.0-0.5); EOSINOPHILS % 17.2 % (0.0-7.0); HEMOGLOBIN 13.3 g/dl (14.0-18.0); LYMPHOCYTES # 1.5 10^3/ul (0.8-2.9); LYMPHOCYTES % 15.9 % (15.0-51.0); MEAN CORPUSCULAR HEMOGLOBIN 30.3 pg (29.0-33.0); MEAN CORPUSCULAR HGB CONC 33.3 g/dl (32.0-37.0); MEAN CORPUSCULAR VOLUME 91.1 fl (82.0-101.0); MEAN PLATELET VOLUME 12.2 fl (7.4-10.4); MONOCYTE # 0.7 10^3/ul (0.3-0.9); NEUTROPHIL # 5.5 10^3/ul (1.6-7.5); NEUTROPHILS % 59.2 % (39.0-77.0); PLATELET COUNT 318 10^3/UL (140-415); RED BLOOD COUNT 4.39 10^6/ul (4.70-6.10); WHITE BLOOD COUNT 9.4 10^3/ul (4.8-10.8)
[2017-02-25 13:31] LABS: INR 0.9; PROTIME 12.1 Sec (12.2-14.2); PT RATIO 0.9
[2017-02-25 13:32] LABS: PARTIAL THROMBOPLASTIN TIME 35.1 Sec (25.0-35.0)
[2017-02-25 13:34] LABS: ALBUMIN/GLOBULIN RATIO 1.92; BILIRUBIN,INDIRECT 0.5 mg/dl (0-1.1); BILIRUBIN,TOTAL 0.5 mg/dl (0.2-1.3); CALCIUM 10.6 mg/dl (8.4-10.2); CREATININE 1.71 mg/dl (0.61-1.24); POTASSIUM 5.1 mmol/L (3.5-5.1); TOTAL PROTEIN 7.6 g/dl (6.1-8.1)
[2017-02-25] MEDS ORDERED: BEN25 PO (14:06)
--- NOTE | 2017-02-25 15:46 | ERD ---
ER Documentation Chief Complaint Date/Time DATE: 02/25/17 TIME: 15:43 Chief Complaint family noticed abnormal swelling to the right side of head HPI Patient is a 51-year-old male with a history of diabetes, hypertension, and INSECT CONTROL AIDE shunt who presents with a bump to his shunt. He says that his brother noticed today that the right-sided INSECT CONTROL AIDE shunt reservoir look bigger than usual. He has no complaints about the shunt itself. He says "I feel stressed". He is also complaining of back pain and itching which started 3 days ago. He said that 3 days ago he also had "bad vision" but that now it is okay and went away on its own. He denies trauma. He has subjective fever but did not take his temperature. Upon review of old medical records this is the patient's eighth visit to the ER since 2013. ROS All systems reviewed and are negative except as per history of present illness. Medications Home Meds Active Scripts Diphenhydramine Hcl* (Benadryl*) 25 Mg Cap, 25 MG PO Q6, #30 CAP Prov:RADHAMES NEVAREZ MD 02/25/17 Lorazepam* (Lorazepam*) 1 Mg Tablet, 1 MG PO Q6 Y for SEIZURES, #30 TAB Prov:YOSEF MOREL MD 10/25/16 Levetiracetam* (Keppra*) 500 Mg Tablet, 500 MG PO BID, #180 TAB Prov:YOSEF MOREL MD 10/25/16 Diphenhydramine Hcl* (Benadryl*) 25 Mg Cap, 25 MG PO QHS for INSOMNIA for 30 Days, #30 CAP 0 Refills Prov:DAQUAN PERRY PA-C 05/23/16 Bisacodyl* (Dulcolax*) 5 Mg Tabec, 5 MG PO DAILY Y for CONSTIPATION, #30 Prov:FRANCISCO RAMIREZ 11/04/14 Reported Medications Citric Acid/Sodium Citrate* (Bicitra* (PEDIATRIC)) 1 Meq/Ml Soln, 30 ML PO TID for 30 Days, BOTTLE 10/30/14 Olanzapine* (Olanzapine*) 7.5 Mg Tablet, 7.5 MG PO BID, TAB 10/30/14 Acetaminophen* (Acetaminophen*) 325 Mg Tablet, 650 MG PO Q4H Y for PAIN AND OR ELEVATED TEMP, TAB 10/30/14 Magnesium Hydroxide* (Milk Of Magnesia*) 400 Mg/5 Ml Oral.susp, 30 ML PO DAILY, ML 10/30/14 Metoprolol Tartrate* (Lopressor*) 100 Mg Tablet, 100 MG PO BID, TAB 10/30/14 Blue Carbonate* (Blue Carbonate*) 300 Mg Tablet, 300 MG PO BID, TAB 10/30/14 Lidocaine 5%* (Lidoderm 5%*) 5% - Patch Adh..patch, 1 PATCH TD DAILY, PATCH 10/30/14 Valsartan* (Diovan*) 160 Mg Tablet, 160 MG PO DAILY, TAB 10/30/14 Colchicine* (Colcrys*) 0.6 Mg Tablet, 0.6 MG PO DAILY, TAB 10/30/14 Ascorbic Acid (Vitamin C) 250 Mg Tab, 250 MG PO DAILY, TAB 10/30/14 Allergies Allergies: Coded Allergies: Tigecycline (Verified Allergy, Mild, swelling, 10/30/14) swollen face PMhx/Soc Hx Neurological Disorder: Yes (seizures) Hx Cardiac Disorders: Yes (HTN) Hx Psychiatric Problems: Yes (mood disorders, ? schizophrenia , alcohol abuse) Hx Miscellaneous Medical Probl: Yes (valve replacement, asthma, HTN, schizophrenia, psychosis, gout) Hx Alcohol Use: No Hx Substance Use: No (unknown ) Hx Tobacco Use: No (unknown ) Smoking Status: Never smoker FmHx Family History: diabetes Physical Exam Vitals Vital Signs Date Time Temp Pulse Resp B/P Pulse Ox O2 Delivery O2 Flow Rate FiO2 02/25/17 11:17 97.8 51 18 114/73 100 Physical Exam Const: No acute distress Head: INSECT CONTROL AIDE shunt reservoir to the right head appears normal Eyes: Normal Conjunctiva ENT: Normal External Ears, Nose and Mouth. Neck: Full range of motion..~ No meningismus. Resp: Clear to auscultation bilaterally Cardio: Regular rate and rhythm, no murmurs Abd: Soft, non tender, non distended. Normal bowel sounds Skin: No petechiae or rashes Back: No midline or flank tenderness Ext: No cyanosis, or edema Neur: Awake and alert, cranial nerves II through XII are intact, no slurred speech Psych: Normal Mood and Affect Result Diagram: 02/25/17 1300 02/25/17 1300 Results 24 hrs Laboratory Tests Test 02/25/17 12:31 02/25/17 13:00 Urine Color YELLOW Urine Clarity CLEAR Urine pH 6.0 Urine Specific [place] 1.010 Urine Ketones NEGATIVEmg/dL Urine Nitrite NEGATIVEmg/dL Urine Bilirubin NEGATIVEmg/dL Urine Urobilinogen NEGATIVEmg/dL Urine Leukocyte Esterase NEGATIVELeu/ul Urine Hemoglobin NEGATIVEmg/dL Urine Glucose NEGATIVEmg/dL Urine Total Protein NEGATIVEmg/dl Urine Opiates Screen Negative Urine Barbiturates Negative Urine Amphetamines Screen Positive Urine Benzodiazepines Screen Negative Urine Cocaine Screen Negative Urine Cannabinoids Negative White Blood Count 9.410^3/ul Red Blood Count 4.3910^6/ul Hemoglobin 13.3g/dl Hematocrit 40.0% Mean Corpuscular Volume 91.1fl Mean Corpuscular Hemoglobin 30.3pg Mean Corpuscular Hemoglobin Concent 33.3g/dl Red Cell Distribution Width 13.0% Platelet Count 19036^3/UL Mean Platelet Volume 12.2fl Neutrophils % 59.2% Lymphocytes % 15.9% Monocytes % 7.0% Eosinophils % 17.2% Basophils % 0.4% Nucleated Red Blood Cells % 0.0/100WBC Neutrophils # 5.510^3/ul Lymphocytes # 1.510^3/ul Monocytes # 0.710^3/ul Eosinophils # 1.610^3/ul Basophils # 0.010^3/ul Nucleated Red Blood Cells # 0.010^3/ul Prothrombin Time 12.1Sec Prothrombin Time Ratio 0.9 INR International Normalized Ratio 0.90 Activated Partial Thromboplast Time 35.1Sec Sodium Level 138mmol/L Potassium Level 5.1mmol/L Chloride Level 107mmol/L Carbon Dioxide Level 23mmol/L Anion Gap 13 Blood Urea Nitrogen 37mg/dl Creatinine 1.71mg/dl Glucose Level 87mg/dl Calcium Level 10.6mg/dl Total Bilirubin 0.5mg/dl Direct Bilirubin 0.00mg/dl Indirect Bilirubin 0.5mg/dl Aspartate Amino Transf (AST/SGOT) 16IU/L Alanine Aminotransferase (ALT/SGPT) 34IU/L Alkaline Phosphatase 57IU/L Total Protein 7.6g/dl Albumin 5.0g/dl Globulin 2.60g/dl Albumin/Globulin Ratio 1.92 Ethyl Alcohol Level < 10.0mg/dl [facility] CT brain shows no acute abnormality per radiology. Urine drug screen is positive for methamphetamines. Smoking Cessation Therapy: Pt. was lectured for greater than 3 minutes on the health risks of continued smoking and the benefits of cessation. Patient is a 51-year-old male presents with multiple complaints. He was found to have a positive urine drug screen for amphetamines. A CT scan shows no hydrocephalus or intracranial hemorrhage. At this point I believe outpatient management is appropriate. He will be given Benadryl for itching. There is no sign of infection at this time. The patient will need to follow-up closely with his primary doctor and with Dr. Humphrey from neurosurgery for reevaluation. He can return sooner for any worsening symptoms. The patient understands the plan is okay for discharge at this time. 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 MD Additional Instructions: SPECIALIST: YOU HAVE A MEDICAL CONDITION WHICH REQUIRES YOU TO SEE A SPECIALIST WITHIN THE NEXT 1-2 DAYS. PLEASE FOLLOW UP WITH YOUR PRIMARY PHYSICIAN FOR REFFERAL.IF YOU DO NOT HAVE A PRIMARY CARE PHYSICIAN AND/OR YOU CAN NOT AFFORD TO SEE A PHYSICIAN THE FOLLOWING RESOURCES HAVE BEEN SUPPLIED TO YOU. IT IS YOUR RESPONSIBILITY TO BE SEEN BY THE SPECIALIST RADHAMES NEVAREZ MD Feb 25, 2017 15:46
[2017-02-26] MEDS ORDERED: KENC1 TOP (10:19)
[2017-02-26] MEDS ORDERED: PRED20TA PO (10:20)
[2017-02-26] MEDS ORDERED: BEN25 PO (10:20)
== END 2017-02-25 14:37 | disposition home or self-care (01) ==
LOC: FTE 11:11
DX: H53.8 Other visual disturbances (principal); D64.9 Anemia, unspecified; I10 Essential (primary) hypertension; J45.909 Unspecified asthma, uncomplicated; E11.9 Type 2 diabetes mellitus without complications; R06.02 Shortness of breath
CPT/HCPCS: 70450; 80053; 80306; 80307; 81003; 85025; 85610; 85730; 87086

== ENCOUNTER 2017-02-26 09:46 | Emergency (ER) | payer MEDICARE ==
[~2017-02-26] VITALS: Ht 185.4 cm; Wt 100.0 kg
[2017-02-26 09:47] VITALS: Ht 185.4 cm; Wt 100.0 kg
[2017-02-26] MEDS ORDERED: KENC1 TOP (10:19)
[2017-02-26] MEDS ORDERED: BEN25 PO (10:20)
[2017-02-26] MEDS ORDERED: PRED20TA PO (10:20)
--- NOTE | 2017-02-26 10:24 | ERD ---
ER Documentation Chief Complaint Date/Time DATE: 02/26/17 TIME: 10:23 Chief Complaint here yesterday c/o same rash/"scrathes" on back HPI This 51-year-old male complains of rash on his back for last few days. Seen here for other complaints yesterday related to his scalp and had a normal evaluation. He has no new injury, fevers, vomiting, deficits, visual changes. Denies any new exposures or new potential allergens. ROS All systems reviewed and are negative except as per history of present illness. Medications Home Meds Active Scripts Prednisone* (Prednisone*) 20 Mg Tab, 40 MG PO DAILY for 3 Days, TAB Start February 27, 2017 Prov:SHAUNA LAWLER MD 02/26/17 Diphenhydramine Hcl* (Benadryl*) 25 Mg Cap, 25 MG PO Q6, #20 CAP Prov:SHAUNA LAWLER MD 02/26/17 Triamcinolone Acetonide (Triamcinolone Acetonide) 0.1% - 15 Gm Cream.gm., 1 APPLIC TOP BID, #1 TUB 30G OK Prov:SHAUNA LAWLER MD 02/26/17 Diphenhydramine Hcl* (Benadryl*) 25 Mg Cap, 25 MG PO Q6, #30 CAP Prov:RADHAMES NEVAREZ MD 02/25/17 Lorazepam* (Lorazepam*) 1 Mg Tablet, 1 MG PO Q6 Y for SEIZURES, #30 TAB Prov:YOSEF MOREL MD 10/25/16 Levetiracetam* (Keppra*) 500 Mg Tablet, 500 MG PO BID, #180 TAB Prov:YOSEF MOREL MD 10/25/16 Diphenhydramine Hcl* (Benadryl*) 25 Mg Cap, 25 MG PO QHS for INSOMNIA for 30 Days, #30 CAP 0 Refills Prov:DAQUAN PERRY PA-C 05/23/16 Bisacodyl* (Dulcolax*) 5 Mg Tabec, 5 MG PO DAILY Y for CONSTIPATION, #30 Prov:FRANCISCO RAMIREZ 11/04/14 Reported Medications Citric Acid/Sodium Citrate* (Bicitra* (PEDIATRIC)) 1 Meq/Ml Soln, 30 ML PO TID for 30 Days, BOTTLE 10/30/14 Olanzapine* (Olanzapine*) 7.5 Mg Tablet, 7.5 MG PO BID, TAB 10/30/14 Acetaminophen* (Acetaminophen*) 325 Mg Tablet, 650 MG PO Q4H Y for PAIN AND OR ELEVATED TEMP, TAB 10/30/14 Magnesium Hydroxide* (Milk Of Magnesia*) 400 Mg/5 Ml Oral.susp, 30 ML PO DAILY, ML 10/30/14 Metoprolol Tartrate* (Lopressor*) 100 Mg Tablet, 100 MG PO BID, TAB 10/30/[address] [employer] [place] Carbonate* ([address] [employer] [place] Carbonate*) 300 Mg Tablet, 300 MG PO BID, TAB 10/30/14 Lidocaine 5%* (Lidoderm 5%*) 5% - Patch Adh..patch, 1 PATCH TD DAILY, PATCH 10/30/14 Valsartan* (Diovan*) 160 Mg Tablet, 160 MG PO DAILY, TAB 10/30/14 Colchicine* (Colcrys*) 0.6 Mg Tablet, 0.6 MG PO DAILY, TAB 10/30/14 Ascorbic Acid (Vitamin C) 250 Mg Tab, 250 MG PO DAILY, TAB 10/30/14 Allergies Allergies: Coded Allergies: Tigecycline (Verified Allergy, Mild, swelling, 10/30/14) swollen face PMhx/Soc Hx Neurological Disorder: Yes (seizures) Hx Cardiac Disorders: Yes (HTN) Hx Psychiatric Problems: Yes (mood disorders, ? schizophrenia , alcohol abuse) Hx Miscellaneous Medical Probl: Yes (valve replacement, asthma, HTN, schizophrenia, psychosis, gout) Hx Alcohol Use: No Hx Substance Use: No (unknown ) Hx Tobacco Use: No (unknown ) Physical Exam Vitals Vital Signs Date Time Temp Pulse Resp B/P Pulse Ox O2 Delivery O2 Flow Rate FiO2 02/26/17 09:47 98.1 59 20 140/89 99 Physical Exam Const: [] Alert, [id number]. Head: Atraumatic Eyes: Normal Conjunctiva ENT: Normal External Ears, Nose and Mouth. Neck: Full range of motion..~ No meningismus. Resp: Clear to auscultation bilaterally Cardio: Regular rate and rhythm, no murmurs Abd: Soft, non tender, non distended. Normal bowel sounds Skin: No petechiae or purpura. There is scattered excoriated maculopapular rash which is blanching with dermatographia some on his back. There is no vesicles, induration, streaking. Back: No midline or flank tenderness Ext: No cyanosis, or edema Neur: Awake and alert Psych: Normal Mood and Affect Results 24 hrs Current Medications Medications (Trade) Dose Ordered Sig/Trena Route PRN Reason Start Time Stop Time Status Last Admin Dose Admin Prednisone (Prednisone) 40 mg ONCE ONCE PO 02/26/17 10:30 02/26/17 10:31 Diphenhydramine HCl (Benadryl) 25 mg ONCE ONCE PO 02/26/17 10:30 02/26/17 10:31 Procedures/MDM Patient presents with a nonspecific dermatitis without evidence of cellulitis, anaphylaxis, life-threatening rashes appropriate. We treated with prednisone, Benadryl and triamcinolone observation at home. The patient was stable with no new complaints during the ER course. Clinically, there is no current evidence to suggest meningitis, sepsis, acute abdomen, pneumonia, acute coronary syndrome , pulmonary embolism, or any other emergent condition appearing to require further evaluation or hospitalization. The patient should certainly return for any new or worsening symptoms per the aftercare instructions. They should otherwise follow-up with her primary care doctor for reevaluation this week. Departure Diagnosis: Primary Impression: Rash Condition: Stable Patient Instructions: Dermatitis, Non-Specific Additional Instructions: Recheck for new or worsening symptoms with primary care doctor. SHAUNA LAWLER MD Feb 26, 2017 10:24
[2017-02-26] MEDS ORDERED: predniSONE 20 MG TAB PO ONE (10:30)
[2017-02-26] MEDS ORDERED: DIPHENHYDRAMINE 25 MG CAP PO ONE (10:30)
== END 2017-02-26 10:44 | disposition home or self-care (01) ==
LOC: FTE 09:46
DX: R21 Rash and other nonspecific skin eruption (principal); I10 Essential (primary) hypertension; J45.909 Unspecified asthma, uncomplicated
CPT/HCPCS: 99284; J7512

== ENCOUNTER 2017-02-28 09:36 | Emergency (ER) | payer MEDICARE ==
[~2017-02-28] VITALS: Wt 104.0 kg
[~2017-02-28 09:36] MED LIST changes: +KENC1 TOP; +PRED20TA PO
--- NOTE | 2017-02-28 10:54 | ERD ---
ER Documentation Chief Complaint Date/Time DATE: 02/28/17 TIME: 10:47 Chief Complaint ABD PAIN X7 DAYS HPI This 51-year-old male who presents the emergency department today complaining of insomnia and not being able to sleep for 2 days. States "I am not right". States he has been drinking caffeine. Denies any other complaints. ROS All systems reviewed and are negative except as per history of present illness. Medications Home Meds Active Scripts Prednisone* (Prednisone*) 20 Mg Tab, 40 MG PO DAILY for 3 Days, TAB Start February 27, 2017 Prov:SHAUNA LAWLER MD 02/26/17 Diphenhydramine Hcl* (Benadryl*) 25 Mg Cap, 25 MG PO Q6, #20 CAP Prov:SHAUNA LAWLER MD 02/26/17 Triamcinolone Acetonide (Triamcinolone Acetonide) 0.1% - 15 Gm Cream.gm., 1 APPLIC TOP BID, #1 TUB 30G OK Prov:SHAUNA LAWLER MD 02/26/17 Diphenhydramine Hcl* (Benadryl*) 25 Mg Cap, 25 MG PO Q6, #30 CAP Prov:RADHAMES NEVAREZ MD 02/25/17 Lorazepam* (Lorazepam*) 1 Mg Tablet, 1 MG PO Q6 Y for SEIZURES, #30 TAB Prov:YOSEF MOREL MD 10/25/16 Levetiracetam* (Keppra*) 500 Mg Tablet, 500 MG PO BID, #180 TAB Prov:YOSEF MOREL MD 10/25/16 Diphenhydramine Hcl* (Benadryl*) 25 Mg Cap, 25 MG PO QHS for INSOMNIA for 30 Days, #30 CAP 0 Refills Prov:DAQUAN PERRY PA-C 05/23/16 Bisacodyl* (Dulcolax*) 5 Mg Tabec, 5 MG PO DAILY Y for CONSTIPATION, #30 Prov:FRANCISCO RAMIREZ 11/04/14 Reported Medications Citric Acid/Sodium Citrate* (Bicitra* (PEDIATRIC)) 1 Meq/Ml Soln, 30 ML PO TID for 30 Days, BOTTLE 10/30/14 Olanzapine* (Olanzapine*) 7.5 Mg Tablet, 7.5 MG PO BID, TAB 10/30/14 Acetaminophen* (Acetaminophen*) 325 Mg Tablet, 650 MG PO Q4H Y for PAIN AND OR ELEVATED TEMP, TAB 10/30/14 Magnesium Hydroxide* (Milk Of Magnesia*) 400 Mg/5 Ml Oral.susp, 30 ML PO DAILY, ML 10/30/14 Metoprolol Tartrate* (Lopressor*) 100 Mg Tablet, 100 MG PO BID, TAB 10/30/14 [place] Carbonate* ([place] Carbonate*) 300 Mg Tablet, 300 MG PO BID, TAB 10/30/14 Lidocaine 5%* (Lidoderm 5%*) 5% - Patch Adh..patch, 1 PATCH TD DAILY, PATCH 10/30/14 Valsartan* (Diovan*) 160 Mg Tablet, 160 MG PO DAILY, TAB 10/30/14 Colchicine* (Colcrys*) 0.6 Mg Tablet, 0.6 MG PO DAILY, TAB 10/30/14 Ascorbic Acid (Vitamin C) 250 Mg Tab, 250 MG PO DAILY, TAB 10/30/14 Allergies Allergies: Coded Allergies: tigecycline (Verified Allergy, Mild, swelling, 02/28/17) swollen face PMhx/Soc History of Surgery: No Anesthesia Reaction: No Hx Neurological Disorder: Yes (seizures) Hx Cardiac Disorders: Yes (HTN) Hx Psychiatric Problems: Yes (mood disorders, ? schizophrenia , alcohol abuse) Hx Miscellaneous Medical Probl: Yes (valve replacement, asthma, HTN, schizophrenia, psychosis, gout) Hx Alcohol Use: Yes Hx Substance Use: No Hx Tobacco Use: No Smoking Status: Never smoker Physical Exam Vitals Vital Signs Date Time Temp Pulse Resp B/P Pulse Ox O2 Delivery O2 Flow Rate FiO2 02/28/17 09:42 97.7 75 18 105/60 99 Physical Exam Const: No acute distress Head: Atraumatic Eyes: Normal Conjunctiva ENT: Normal External Ears, Nose and Mouth. Neck: Full range of motion..~ No meningismus. Resp: Clear to auscultation bilaterally Cardio: Regular rate and rhythm, no murmurs Abd: Soft, non tender, non distended. Normal bowel sounds Skin: No petechiae or rashes Back: No midline or flank tenderness Ext: No cyanosis, or edema Neur: Awake and alert Psych: Normal Mood and Affect Procedures/MDM This a 51-year-old male who presents to the emergency department today complaining of insomnia for the past couple of days. Patient indicated he had been drinking caffeine. He was instructed to stop drinking caffeine. Upon review of patient's medical records this is the patient's third visit to the emergency room in the past week for various complaints. Patient summary report stated he had abdominal pain for 7 days. When I asked the patient about this he stated O yeah "I have some stomach pain for a couple of days" Patient had no abdominal pain on physical exam. His entire physical exam is benign. He has had no nausea or vomiting. He is unsure what medications he takes at home. I did speak to the patient's brother when he showed up to the hospital to provide transportation to the patient and he told me that he had been a resident of [facility] and had been in and out of that facility. He indicated that a nurse does go to the patient's house 2 times a week but he is no longer in that facility. He states that the patient lives in a guest house on someone else's property. I did place a call to Margy Fuentes at [facility] and he indicated that the patient had been discharged home as he had no need for [facility] facility at that time. I asked Mr. Kirkland's why he had told the patient to come to the ER and he stated that the brother had called and told him that the patient was thinking of hurting himself. Patient denies any suicidal or homicidal ideation today. I do not feel the patient needs to be admitted. His physical exam is benign. He has had multiple nonspecific complaints in the past week. The brother did indicate that the patient has an appointment with Dr. Thorne his primary care physician this morning. I have explained to him that he does need to follow-up with the primary care doctor and that he may need further evaluation for possible placement in long-term care facility or [facility] facility. I have explained this to the brother. Brother understood At this time I have low suspicion that the patient is a danger to himself or others. His physical exam is benign. I doubt any acute surgical intervention is necessary. At this time the patient is stable for discharge and outpatient management. Patient should follow up with their PCP in the next 1-2 days. They may return to the emergency department sooner for any persistent or worsening of symptoms. Patient and brother understood and agreed with the plan. Discussed the patient with Dr. Nevarez and he is in agreement with the plan. Departure Diagnosis: Primary Impression: Insomnia Insomnia type: unspecified Qualified Code: G47.00 - Insomnia, unspecified type Condition: Fair Patient Instructions: Treating Insomnia Referrals: Dr. Thorne Additional Instructions: Call your primary care doctor TOMORROW for an appointment during the next 1-2 days.See the doctor sooner or return here if your condition worsens before your appointment time. Patient's seen here in the emergency department 3 times in the past week with benign physical exams. There is no indication to admit the patient to the hospital Please evaluate and possibly refer patient to possible [facility] facility or [facility] facility LANA BILLINGSLEY PA-C Feb 28, 2017 10:54
== END 2017-02-28 11:00 | disposition home or self-care (01) ==
LOC: FTE 09:36
DX: G47.00 Insomnia, unspecified (principal); I10 Essential (primary) hypertension; J45.909 Unspecified asthma, uncomplicated
CPT/HCPCS: 99282